=== PATIENT | male | born 1950 | race Caucasian/White ===

== ENCOUNTER → 2016-03-08 | Outpatient (CLI) | payer MEDICARE, OTHER ==
--- NOTE | 2016-03-09 07:33 | CT ---
EXAMINATION TYPE: CT pelvis w con DATE OF EXAM: 03/08/2016 6:56 PM REFERENCE: NONE HISTORY: Scrotal Wound Infection T81.4XXA HISTORY: Scrotal wound infection. Hydrocele surgery 01-25-16. REFERENCE: NONE CT DLP: 1202.30 mGy Automated exposure control for dose reduction was used. TECHNIQUE: Helical acquisition through the abdomen and pelvis was obtained following the oral ingesti on of with Oral Contrast and following intravenous administration of 100 mL of Omnipaque 300. The robert a was reformatted in axial, coronal and sagittal projections. FINDINGS: There is inflammatory change within the left inguinal canal extending into the soft tissue s of the left hemiscrotum. No definite drainable fluid collection is seen. There is calcification within the prostate gland. The bladder is not distended. There is no significant diverticular change. No free fluid and no free air is seen. There is mild prominence of the left renal pelvis and proximal ureter. There is a 1 to 2 mm calculus within the midportion of the left ureter. The right kidney is normal. There is mild degenerative disc disease, most marked at L2-3 but also present to lesser extent L5-S1. There is mild facet arthropathy in the lower lumbar spine. IMPRESSION: 1. EVIDENCE OF INFLAMMATORY CHANGE WITHIN THE LEFT INGUINAL CANAL EXTENDING INTO THE LEFT HEMISCROTUM WITHOUT A DRAINABLE FLUID COLLECTION. 2. DEGENERATIVE CHANGES WITHIN THE LUMBAR SPINE. 3. 1 TO 2 MM CALCULUS IN THE MID LEFT URETER CAUSING MILD HYDRONEPHROSIS ON THE LEFT.
== END | disposition home or self-care (01) ==
LOC: RADCTMAIN 18:24
PROVIDERS: ATTEND Surgery
DX: T81.4XXA Infection following a procedure, initial encounter (principal); N13.2 Hydronephrosis with renal and ureteral calculous obstruction
CPT/HCPCS: 72193; Q9967

== ENCOUNTER 2016-03-13 15:50 | Inpatient (IN) | payer MEDICARE, OTHER ==
[2016-03-13 17:22] LABS: Basophils # (A) 0.1 k/uL (0-0.2); Basophils % (A) 0 %; CH 28.1; CHCM 33.7; Eosinophils # (A) 0.1 k/uL (0-0.7); Eosinophils % (A) 1 %; HCT 35.4 % (39.0-53.0); HDW 3.18; Luc # (Auto) 0.29; Luc % (Auto) 2; Lymphocytes # (A) 2.1 k/uL (1.0-4.8); Lymphocytes % (A) 14 %; MCH 27.8 pg (25.0-35.0); MCHC 33.2 g/dL (31.0-37.0); MCV 83.8 fL (80.0-100.0); Mean Platelet Volume 6.8; Monocytes # (A) 0.8 k/uL (0-1.0); Monocytes % (A) 5 %; Neutrophils # (A) 11.4 k/uL (1.3-7.7); Neutrophils % (A) 78 %; RBC 4.23 m/uL (4.30-5.90); RDW 13.9 % (11.5-15.5); WBC 14.7 k/uL (3.8-10.6); WBC (Perox) 14.98
[2016-03-13] MEDS ORDERED: ACETAMINOPHEN TAB 500 MG TAB PO STA (17:29)
[2016-03-13 17:30] LABS: HGB 11.8 gm/dL (13.0-17.5)
[2016-03-13 17:31] LABS: Appearance,Urine Clear (Clear); Bilirubin,Urine Negative (Negative); Glucose,Urine (UA) Negative (Negative); Ketones,Urine Negative (Negative); Leukocyte Esterase,Urine Trace (Negative); Mucus,Urine Rare /hpf; Nitrite,Urine Negative (Negative); PH, Urine 5.5 (5.0-8.0); Particle Count 3040; Protein,Urine Negative (Negative); RBC,Urine 1 /hpf (0-5); Specific Gravity,Urine 1.009 (1.001-1.035); UA Billing (MACRO vs. MICRO) MICRO; WBC,Urine 1 /hpf (0-5)
[2016-03-13 17:36] LABS: ALT 35 U/L (21-72); AST 37 U/L (17-59); Alkaline Phosphatase 89 U/L (38-126); Anion Gap 12 mmol/L; Blood Urea Nitrogen 14 mg/dL (9-20); Calcium 8.6 mg/dL (8.4-10.2); Carbon Dioxide 24 mmol/L (22-30); Chloride 100 mmol/L (98-107); Glucose 128 mg/dL (74-99); Non-African American GFR(MDRD) >60 (>60 ml/min/1.73 sqM); Sodium 136 mmol/L (137-145); Total Bilirubin 0.8 mg/dL (0.2-1.3); Total Protein 6.6 g/dL (6.3-8.2)
[2016-03-13 17:37] LABS: Potassium 4.8 mmol/L (3.5-5.1)
[2016-03-13 17:46] LABS: INR 1.3 (<1.1); Prothrombin Time 12.4 sec (9.0-12.0)
[2016-03-13 17:47] LABS: Partial Thromboplastin Time 21.5 sec (22.0-30.0)
--- NOTE | 2016-03-13 18:28 | US ---
EXAMINATION TYPE: US scrotum with doppler. Grayscale and color Doppler Duplex imaging performed of thang de la fuente scrotum. DATE OF EXAM: 03/13/2016 6:05 PM COMPARISON: on PACS CLINICAL HISTORY: infection. Patients had left hydrocele surgery on 01/24. Drainage. Tenderness. EXAM MEASUREMENTS: TESTICLES: Right Testicle: 4.0 x 2.8 x 2.1 cm Left Testicle: 4.5 x 3.4 x 1.5 cm EPIDIDYMIS HEAD: Right Epididymis: 0.9 x 0.8 x 0.6 cm Left Epididymis: Not seen TECHNOLOGIST IMPRESSION: Left epididymis seen. Large echogenic lesion seen within the left sac= 2.6 cm Doppler performed to assess for testicular vascularity; good bilateral color flow and waveforms are s een. There is no evidence of testicular torsion. Presence of hydroceles: small left Presence of varicoceles: left side= 2.5 mm without valsalva IMPRESSION: There is no evidence of testicular torsion or mass. There is normal arterial waveform in the testicular arteries. There is a predominantly solid 2.6 x 1.6 cm area on the left side but could relate to scar tissue in this patient with left-sided surgery recently. No free fluid.
[2016-03-13] MEDS ORDERED: AMPICILLIN-SULBACTAM 3 GM in SODIUM CHLORIDE 0.9% 100 ML IVPB STA (19:19)
[2016-03-13] MEDS ORDERED: KETOROLAC 30 MG/ML 1 ML VIAL IVP STA (19:19)
[2016-03-13] MEDS ORDERED: IV VANCOMYCIN PER PHARMACY 1 EACH MISC MISCELLANE PRN (19:19)
[2016-03-13] MEDS ORDERED: VANCOMYCIN 2,000 MG in SODIUM CHLORIDE 0.9% 500 ML IVPB STA (19:25)
--- NOTE | 2016-03-13 19:32 | ED ---
General Adult HPI - General Chief complaint: Recheck/Abnormal Lab/Rx Stated complaint: Infection. Sent by Dr Dunbar Seen by Provider: 03/13/16 16:59 Source: patient Mode of arrival: ambulatory - History of Present Illness Initial comments: This 65-year-old white male presents with a complaint of some drainage from the left scrotum. He had hydrocele surgery done on 01/25/2016. He had a course of antibiotics a couple weeks later. He is unsure of the name of the antibiotics but apparently stopped it approximately 2 weeks ago. He relates that over the past several weeks he has had increased drainage. This is been sterling, bloody, and yellow at times. He states that some sutures were present in the drainage at one point. He presents today with a fever. The pain has been minimal. He saw doctor about this past week and had a computed tomography scan of the abdomen and pelvis which showed some inflammatory changes in the left inguinal canal and the left scrotum. He also had a left 1-2 mm ureteral calculus with associated hydronephrosis. He apparently was asymptomatic from this ureteral stone. He denies any other complaints or modifying factors. He denies any measured fevers at home. He denies any urinary symptoms. - Related Data Home Medications Medication Instructions Recorded Confirmed Biotin 5 mg PO DAILY 01/23/16 03/13/16 Lurasidone HCl [Latuda] 20 mg PO DAILY 01/23/16 03/13/16 Multivitamin/Iron/Folic Acid 1 tab PO DAILY 01/23/16 03/13/16 [Centrum Complete Multivit Tab] Naproxen 500 mg PO Q12HR PRN 01/23/16 03/13/16 Allergies Allergy/AdvReac Type Severity Reaction Status Date / Time wool Allergy Rash/Hives Verified 01/23/16 14:08 Review of Systems ROS Statement: Those systems with pertinent positive or pertinent negative responses have been documented in the HPI. ROS Other: All systems not noted in ROS Statement are negative. Past Medical History Past Medical History: Osteoarthritis (OA) History of Any Multi-Drug Resistant Organisms: None Reported Past Surgical History: Hernia Repair Additional Past Surgical History / Comment(s): hydrocele Past Psychological History: Bipolar, Depression, Schizophrenia Smoking Status: Current some day smoker Past Alcohol Use History: None Reported Past Drug Use History: None Reported General Exam - General Exam Comments Initial Comments: GENERAL: The patient is well nourished and well hydrated. VITAL SIGNS: Heart rate, blood pressure, respiratory rate reviewed as recorded in nurse's notes. EYES: Pupils are round and reactive. Extraocular movements are intact. No conjunctival / lid redness or swelling. ENT: No external evidence of injury, swelling, or ecchymosis. Airway is patent. Throat is clear. NECK: Nontender. No swelling or evidence of injury. No subcutaneous emphysema. Trachea is midline. No thyroid mass. HEART: Regular rate and rhythm. Good peripheral pulses. LUNGS/CHEST: Breath sounds clear and equal bilaterally. No rales, rhonchi, or wheezes. No ecchymosis, subcutaneous emphysema, or tenderness. ABDOMEN: Abdomen soft without tenderness. No palpable masses or organomegaly. No peritoneal signs. No abdominal wall swelling or ecchymosis. EXTREMITIES: No extremity tenderness. Normal muscle tone and function. No thoracolumbar tenderness. NEUROLOGIC: Sensation is grossly intact. Cranial nerve exam reveals face is symmetrical, tongue is midline, speech is clear. SKIN: No abrasions or ecchymosis is noted. No induration or masses noted. PSYCHIATRIC: Alert and oriented. Appropriate behavior and judgment. Genitourinary: There is some purulent drainage from the lateral aspect of the left scrotum. There is some mild swelling. There is no significant tenderness to the scrotum. There is associated mild erythema. Course Vital Signs 03/13/16 03/13/16 03/13/16 16:04 17:10 18:25 Temperature 101.8 F H 101.9 F H 101.8 F H Pulse Rate 97 91 86 Respiratory 20 16 16 Rate Blood Pressure 135/70 158/80 117/69 O2 Sat by Pulse 98 96 98 Oximetry Medical Decision Making - Medical Decision Making The patient was seen and examined. All diagnostics were reviewed. An IV was started and he was hydrated. He received some Tylenol as well as some Toradol for his fever. His white count came back elevated consistent with infection. He also had a scrotal ultrasound which does show a 2.61.6 solid area in the left scrotum possibly related to some scar tissue. The case is discussed with Dr. Hassan for Dr. Camp and he would like admission with urology to consult. Case is discussed with Dr. Vincent and he is agreeable to current treatment regimen. The patient is admitted to the general medical floor for further treatment. - Lab Data Result diagrams: 03/13/16 17:00 03/13/16 17:00 Lab Results 03/13/16 03/13/16 03/13/16 Range/Units 17:00 17:00 17:00 WBC 14.7 H (3.8-10.6) k/uL RBC 4.23 L (4.30-5.90) m/uL Hgb 11.8 L D (13.0-17.5) gm/dL Hct 35.4 L (39.0-53.0) % MCV 83.8 (80.0-100.0) fL MCH 27.8 (25.0-35.0) pg MCHC 33.2 (31.0-37.0) g/dL RDW 13.9 (11.5-15.5) % Plt Count 395 (150-450) k/uL Neutrophils % 78 % Lymphocytes % 14 % Monocytes % 5 % Eosinophils % 1 % Basophils % 0 % Neutrophils # 11.4 H (1.3-7.7) k/uL Lymphocytes # 2.1 (1.0-4.8) k/uL Monocytes # 0.8 (0-1.0) k/uL Eosinophils # 0.1 (0-0.7) k/uL Basophils # 0.1 (0-0.2) k/uL PT (9.0-12.0) sec INR (<1.1) APTT (22.0-30.0) sec Sodium 136 L (137-145) mmol/L Potassium 4.8 (3.5-5.1) mmol/L Chloride 100 (98-107) mmol/L Carbon Dioxide 24 (22-30) mmol/L Anion Gap 12 mmol/L BUN 14 (9-20) mg/dL Creatinine 1.12 (0.66-1.25) mg/dL Est GFR (MDRD) Af Amer >60 (>60 ml/min/1.73 sqM) Est GFR (MDRD) Non-Af >60 (>60 ml/min/1.73 sqM) Glucose 128 H (74-99) mg/dL Plasma Lactic Acid Raffi 1.2 (0.7-2.0) mmol/L Calcium 8.6 (8.4-10.2) mg/dL Total Bilirubin 0.8 (0.2-1.3) mg/dL AST 37 (17-59) U/L ALT 35 (21-72) U/L Alkaline Phosphatase 89 (38-126) U/L Total Protein 6.6 (6.3-8.2) g/dL Albumin 3.2 L (3.5-5.0) g/dL Urine Color Urine Appearance (Clear) Urine pH (5.0-8.0) Ur Specific [place] (1.001-1.035) Urine Protein (Negative) Urine Glucose (UA) (Negative) Urine Ketones (Negative) Urine Blood (Negative) Urine Nitrate (Negative) Urine Bilirubin (Negative) Urine Urobilinogen (<2.0) mg/dL Ur Leukocyte Esterase (Negative) Urine RBC (0-5) /hpf Urine WBC (0-5) /hpf Urine Mucus (None) /hpf 03/13/16 03/13/16 Range/Units 17:00 17:00 WBC (3.8-10.6) k/uL RBC (4.30-5.90) m/uL Hgb (13.0-17.5) gm/dL Hct (39.0-53.0) % MCV (80.0-100.0) fL MCH (25.0-35.0) pg MCHC (31.0-37.0) g/dL RDW (11.5-15.5) % Plt Count (150-450) k/uL Neutrophils % % Lymphocytes % % Monocytes % % Eosinophils % % Basophils % % Neutrophils # (1.3-7.7) k/uL Lymphocytes # (1.0-4.8) k/uL Monocytes # (0-1.0) k/uL Eosinophils # (0-0.7) k/uL Basophils # (0-0.2) k/uL PT 12.4 H (9.0-12.0) sec INR 1.3 (<1.1) APTT 21.5 L (22.0-30.0) sec Sodium (137-145) mmol/L Potassium (3.5-5.1) mmol/L Chloride (98-107) mmol/L Carbon Dioxide (22-30) mmol/L Anion Gap mmol/L BUN (9-20) mg/dL Creatinine (0.66-1.25) mg/dL Est GFR (MDRD) Af Amer (>60 ml/min/1.73 sqM) Est GFR (MDRD) Non-Af (>60 ml/min/1.73 sqM) Glucose (74-99) mg/dL Plasma Lactic Acid Raffi (0.7-2.0) mmol/L Calcium (8.4-10.2) mg/dL Total Bilirubin (0.2-1.3) mg/dL AST (17-59) U/L ALT (21-72) U/L Alkaline Phosphatase (38-126) U/L Total Protein (6.3-8.2) g/dL Albumin (3.5-5.0) g/dL Urine Color Yellow Urine Appearance Clear (Clear) Urine pH 5.5 (5.0-8.0) Ur Specific [place] 1.009 (1.001-1.035) Urine Protein Negative (Negative) Urine Glucose (UA) Negative (Negative) Urine Ketones Negative (Negative) Urine Blood Negative (Negative) Urine Nitrate Negative (Negative) Urine Bilirubin Negative (Negative) Urine Urobilinogen 2.0 (<2.0) mg/dL Ur Leukocyte Esterase Trace H (Negative) Urine RBC 1 (0-5) /hpf Urine WBC 1 (0-5) /hpf Urine Mucus Rare H (None) /hpf Disposition Clinical Impression: Scrotal infection, Fever, Leukocytosis, Anemia, Hypertension, Status post repair of hydrocele Disposition: ADMITTED IP TO THIS [facility] Condition: Fair Time of Disposition: 19:32 Decision Date: 03/13/16 Decision Time: 19:32
[2016-03-13] MEDS ORDERED: ACETAMINOPHEN TAB 325 MG TAB PO PRN (19:33)
[2016-03-13] MEDS ORDERED: ONDANSETRON 4 MG/2 ML VIAL IVP PRN (19:33)
[2016-03-13] MEDS ORDERED: NALOXONE 0.4 MG/ML 1 ML VIAL IV PRN (19:33)
[2016-03-13] MEDS ORDERED: NAPROXEN 250 MG TAB PO PRN (19:36)
--- NOTE | 2016-03-14 07:44 | P.GSCN ---
History of Present Illness Consult date: 03/14/16 History of present illness: The patient is a 65-year-old gentleman who several weeks ago underwent scrotal exploration for a hydrocele by . The hydrocele was small but there was a large inguinal mass. Dr. Cardenas was asked to evaluate and he had either a lipoma the cord or some omentum. It was resected. Postoperatively he started having drainage. He has been seen in the office multiple times. Cultures have been skin fluoroscopy. He has been on different antibiotics. He apparently had a CAT scan identifying a mass in the groin consistent with a phlegmon. He was told by Dr. Cardenas's office, the emergency room. In the emergency room he had drainage from the scrotum as well as a fever 101 8. He was admitted under Dr. Cardenas service. We are asked to see the patient. He is afebrile this morning. There is drainage coming from the scrotum at is purulent. Review of Systems - Constitutional Reports fever - Genitourinary Reports as per HPI Past Medical History Past Medical History: Cancer, Osteoarthritis (OA) Additional Past Medical History / Comment(s): past concussions eczema as child, edentulous,basal cell skin cancer lt face , kidney stones,currently wearing a brief d/r drainage (recent scrotal sx) History of Any Multi-Drug Resistant Organisms: None Reported Past Surgical History: Adenoidectomy, Hernia Repair, Tonsillectomy Additional Past Surgical History / Comment(s): hydrocele 16 scrotal exploration/excision of lipoma lt spermatic cord. several basal cell skin cancer removal, sigmoidoscopy/polypectomy,umb hernia repair,deviated septum. Past Anesthesia/Blood Transfusion Reactions: No Reported Reaction Past Psychological History: Bipolar, Depression, Schizophrenia Smoking Status: Current some day smoker Past Alcohol Use History: Rare Additional Past Alcohol Use History / Comment(s): stated started smoking in his late 30's or early 40's.is a some day smoker. a pack will last a week. smoking cessation booklet given to pt. Past Drug Use History: None Reported - Past Family History Father Additional Family Medical History / Comment(s): health was good until her fell broke a hip,ended up with pne and from complications from pne. Mother Additional Family Medical History / Comment(s): heart problems and pacemaker Medications and Allergies Home Medications Medication Instructions Recorded Confirmed Type Biotin 5 mg PO DAILY 01/23/16 03/13/16 History Lurasidone HCl [Latuda] 20 mg PO DAILY 01/23/16 03/13/16 History Multivitamin/Iron/Folic Acid 1 tab PO DAILY 01/23/16 03/13/16 History [Centrum Complete Multivit Tab] Naproxen 500 mg PO Q12HR PRN 01/23/16 03/13/16 History Allergies Allergy/AdvReac Type Severity Reaction Status Date / Time wool Allergy Rash/Hives Verified 01/23/16 14:08 Surgical - Exam Vital Signs Temp Pulse Resp BP Pulse Ox 101.8 F H 97 20 135/70 98 03/13/16 16:04 03/13/16 16:04 03/13/16 16:04 03/13/16 16:04 03/13/16 16:04 - General well developed, well nourished, no distress - Eyes PERRL - ENT no hearing loss - Neck no masses - Respiratory normal expansion, normal respiratory effort - Cardiovascular Rhythm: regular - Abdomen Abdomen: soft, non tender - Genitourinary The penis is normal. In the left anterior scrotal approach in the groin there is a small opening draining thick purulent non-smelling fluid. There is induration in the left groin. When it is compressed more fluid drained out of the opening. There is no palpable fluctuance. There is no crepitus. The skin is not erythematous. - Neurologic normal sensation - Musculoskeletal normal posture - Psychiatric oriented to time, oriented to person, oriented to place Results - Labs 03/13/16 17:00 03/13/16 17:00 Assessment and Plan Plan: Impression: Left groin/scrotal infection, abscess surgical. Recommendations: I will notify of this admission. He and Dr. Camp we'll then decide whether further surgical intervention will be required.
[2016-03-14 08:02] LABS: Basophils # (A) 0.1 k/uL (0-0.2); Basophils % (A) 1 %; CHCM 33.1; Eosinophils # (A) 0.1 k/uL (0-0.7); Eosinophils % (A) 1 %; HCT 32.9 % (39.0-53.0); HGB 10.9 gm/dL (13.0-17.5); Luc # (Auto) 0.19; Luc % (Auto) 2; Lymphocytes # (A) 1.6 k/uL (1.0-4.8); Lymphocytes % (A) 17 %; MCV 84.8 fL (80.0-100.0); Mean Platelet Volume 6.9; Monocytes # (A) 0.6 k/uL (0-1.0); Monocytes % (A) 6 %; Neutrophils # (A) 6.9 k/uL (1.3-7.7); Neutrophils % (A) 73 %; RBC 3.88 m/uL (4.30-5.90); RDW 14.2 % (11.5-15.5); WBC 9.4 k/uL (3.8-10.6); WBC (Perox) 9.74
[2016-03-14] MEDS: ENOXAPARIN 40 MG/0.4 ML SYRINGE SQ SCH (08:07)
[2016-03-14] MEDS: AMPICILLIN-SULBACTAM 3 GM in SODIUM CHLORIDE 0.9% 100 ML IVPB SCH ×3 (08:08→17:33)
[2016-03-14] MEDS: PANTOPRAZOLE 40 MG/10 ML VIAL IV SCH (08:11)
[2016-03-14] MEDS ORDERED: NON-FORMULARY DRUG (Biotin [Biotin] 5 MG) PO SCH (09:00)
[2016-03-14] MEDS: VANCOMYCIN 2,000 MG in SODIUM CHLORIDE 0.9% 500 ML IVPB SCH ×2 (09:56→20:44)
[2016-03-14] MEDS ORDERED: HYDROmorphone 1 MG/ML 1 ML SYRINGE IVP STA (10:49)
--- NOTE | 2016-03-14 11:44 | P.GSHP ---
History of Present Illness H&P Date: 03/14/16 Chief Complaint: Psoas abscess Patient underwent operative excision of a left scrotal cyst. During the operation I was asked to evaluate what appeared to represent either a lipoma or possibly a low-lying hernia within the inguinal canal. This area was ligated during that operative procedure. Postoperatively he has developed a purulent drainage from the scrotal incision site. This has persisted with fairly impressive volume. An outpatient CAT scan was ordered after I saw the patient in the office last week. CAT scan shows a psoas abscess small air bubbles as well. There is no bowel contributing to that at this time the can be seen. He has had fevers as an outpatient. His white blood cell count last night when he came to the ER was elevated. He underwent a percutaneous drain of a purulent fluid collection today. Consultation to urology and infectious disease has started. He is on broad-spectrum antibiotics. Cultures were performed as an outpatient which showed normal skin asif. He was treated as an outpatient with oral antibiotics by urology. - Review of Systems Comment: The patient denies any acute changes in his vision or hearing, no dysphagia or odynophagia, no chest pain or shortness of breath, no dysuria or hematuria, no headache, no runny nose, no rectal bleeding or melena, no unexplained weight loss Past Medical History Past Medical History: Cancer, Osteoarthritis (OA) Additional Past Medical History / Comment(s): past concussions eczema as child, edentulous,basal cell skin cancer lt face , kidney stones,currently wearing a brief d/r drainage (recent scrotal sx) History of Any Multi-Drug Resistant Organisms: None Reported Past Surgical History: Adenoidectomy, Hernia Repair, Tonsillectomy Additional Past Surgical History / Comment(s): hydrocele 01-25-16 scrotal exploration/excision of lipoma lt spermatic cord. several basal cell skin cancer removal, sigmoidoscopy/polypectomy,umb hernia repair,deviated septum. Past Anesthesia/Blood Transfusion Reactions: No Reported Reaction Past Psychological History: Bipolar, Depression, Schizophrenia Smoking Status: Current some day smoker Past Alcohol Use History: Rare Additional Past Alcohol Use History / Comment(s): stated started smoking in his late 30's or early 40's.is a some day smoker. a pack will last a week. smoking cessation booklet given to pt. Past Drug Use History: None Reported - Past Family History Father Additional Family Medical History / Comment(s): health was good until her fell broke a hip,ended up with pne and from complications from pne. Mother Additional Family Medical History / Comment(s): heart problems and pacemaker Medications and Allergies Home Medications Medication Instructions Recorded Confirmed Type Biotin 5 mg PO DAILY 01/23/16 03/13/16 History Lurasidone HCl [Latuda] 20 mg PO DAILY 01/23/16 03/13/16 History Multivitamin/Iron/Folic Acid 1 tab PO DAILY 01/23/16 03/13/16 History [Centrum Complete Multivit Tab] Naproxen 500 mg PO Q12HR PRN 01/23/16 03/13/16 History Allergies Allergy/AdvReac Type Severity Reaction Status Date / Time wool Allergy Rash/Hives Verified 01/23/16 14:08 Surgical - Exam Vital Signs Temp Pulse Resp BP Pulse Ox 101.8 F H 97 20 135/70 98 03/13/16 16:04 03/13/16 16:04 03/13/16 16:04 03/13/16 16:04 03/13/16 16:04 Physical exam: General: [Well-developed, well-nourished] HEENT: Normocephalic, sclerae nonicteric Abdomen: Purulent drainage from a small opening in the mid aspect of the left hemiscrotum induration surrounds this and extends up into the inguinal canal where there is mild tenderness, no fluctuance, slight erythema noted no odor Extremities: No edema Neuro: Alert and oriented Results - Labs 03/14/16 07:26 03/13/16 17:00 Abnormal Lab Results - Last 24 Hours (Table) 03/14/16 Range/Units 07:26 RBC 3.88 L (4.30-5.90) m/uL Hgb 10.9 L (13.0-17.5) gm/dL Hct 32.9 L (39.0-53.0) % Assessment and Plan (1) Psoas abscess Narrative/Plan: I suspect an ascending infection related to the recent surgical procedure. Percutaneous drain placement took place earlier today. Hopefully between this, appropriate IV antibiotics, and local wound care to the scrotum we can avoid any surgical intervention. Await infectious disease evaluation. We'll consult Dr. Mace for evaluation. Status: Acute
[2016-03-14] MEDS: LURASIDONE 40 MG TAB PO SCH (11:47)
[2016-03-14] MEDS: MULTIVITAMINS, THERA 1 EACH TAB PO SCH (11:48)
--- NOTE | 2016-03-14 12:53 | CT ---
EXAMINATION TYPE: CT guided abscess drainage DATE OF EXAM: 03/14/2016 11:38 AM COMPARISON: NONE HISTORY: Insertion of drainage tube CT DLP: 1374 mGycm The procedure is discussed with the patient, the risks, complications, benefits and alternatives, wer e discussed and any questions were answered. Informed consent was obtained. The patient is placed s upine on the CT table, prepped and draped in the usual sterile fashion. Utilizing a 22-gauge Chiba needle access into the psoas fluid collection was achieved.. Purulent mate rial was aspirated from the needle. There is placement of a guidewire and conversion to a 0.035 syste m and serial dilation 8 German with placement 8 German drainage catheter. Repeat imaging demonstrated ideal placement of a catheter. All elements of maximal barrier and sterile technique were utilized. The patient remained stable thr oughout the procedure with no immediate postprocedural complication. Sample sent to pathology for kailyn lysis. IMPRESSION: 1. Successful CT guided psoas muscle abscess drainage catheter insertion.
--- NOTE | 2016-03-14 19:37 | CONS ---
DATE OF CONSULTATION: REASON FOR CONSULTATION: Management of antibiotics. HISTORY OF PRESENT ILLNESS: The patient is a 65 -year-old came in today with pain and pus coming out of the left groin area and the patient was found to have abscess for which the patient underwent ( ) incision and drainage. The patient ( ) surgery for hydrocele. Post surgery patient appears to have ( ) surgical site area for which the patient received oral antibiotics without any significant improvement in the groin phlegmon at that time and the patient ended up having fever 101 in the Emergency Room Department. The patient is admitted for sepsis secondary to abscess in the pelvic area for which patient underwent CT-guided drainage. Patient is feeling better at this point of time. He is complaining of minimal pain at home and here. The patient is on Unasyn and vancomycin which is ( ) cultures are pending including gram stain, pending gram stain. REVIEW OF SYSTEMS: CONSTITUTIONAL: No fever, no malaise, no fatigue. HEENT: No recent visual problems or hearing problems. Denied any sore throat. CARDIOVASCULAR: No chest pain, orthopnea, PND, no palpitations, no syncope. PULMONARY: No shortness of breath, no cough, no hemoptysis. GASTROINTESTINAL: No diarrhea, no nausea, no vomiting, no abdominal pain. Normoactive bowel sounds. NEUROLOGICAL: No headaches, no weakness, no numbness. HEMATOLOGICAL: Denies any bleeding or petechiae. GENITOURINARY: Denies any burning micturition, frequency, or urgency. MUSCULOSKELETAL/RHEUMATOLOGICAL: Denies any joint pain, swelling, or any muscle pain. ENDOCRINE: Denies any polyuria or polydipsia. DERMATOLOGICAL: As described in history of present illness. The rest of the 14 point review of systems is negative. PAST MEDICAL HISTORY: Osteoarthritis, recent hydrocele and surgery for hydrocele, ( ). PAST SURGICAL HISTORY: tonsillectomy and adenoidectomy, hernia repair, the patient had ( ) exploration and excision of lipoma. Patient had basal cell carcinoma. Past medical history also of depression, schizophrenia. SOCIAL HISTORY: The patient did smoke until last week, used to smoke a pack per day. Denied any alcohol abuse or any drug abuse. FAMILY HISTORY: Father without any medical problems. Mother had heart problems and ( ) pacemaker. Home medications prior to admission: 1. Levacetone. 2. Multivitamin in the past. ALLERGIES: ( ). PHYSICAL EXAMINATION: VITAL SIGNS: Temperature 97.0, pulse of ( ), blood pressure is ( ). Saturating at 98% on room air. GENERAL: The patient is alert and oriented x3, not in any acute distress. Well developed, well nourished. HEENT: Pupils are round and equally reacting to light. EOMI. No scleral icterus. No conjunctival pallor. Normocephalic, atraumatic. No pharyngeal erythema. No thyromegaly. CARDIOVASCULAR: S1 and S2 present. No murmurs, rubs, or gallops. PULMONARY: Chest is clear to auscultation, no wheezing or crackles. ABDOMEN: Soft, nontender, nondistended, normoactive bowel sounds. No palpable organomegaly. MUSCULOSKELETAL: No joint swelling or deformity. EXTREMITIES: No cyanosis, clubbing, or pedal edema. NEUROLOGICAL: Gross neurological examination did not reveal any focal deficits. SKIN: No rashes. Right groin area patient has a drain coming out of it with pus drainage into the drainage site. LABORATORY DATA: CBC, BMP are abnormal for elevated WBC count of 14,100. ASSESSMENT AND PLAN: 1. ( ) abscess for which patient underwent severe drainage and the patient is on Unasyn and Vancomycin which is appropriate. We will await wound cultures and patient had a contiguous spread from the recent surgical site area. Patient denied any IV drug use. At this time, I will hold off on the evaluation of HIV and hepatitis B which is reasonable if done. Patient denied any history of hepatitis and IV drug use in the past. 2. Schizophrenia. 3. Sepsis secondary to ( ) abscess. The patient is on IV fluids as mentioned above and antibiotics as mentioned above status post drainage. Thank you for letting me participate in this patient's care. Patient's primary care physician is Dr. Rita Camp.
[2016-03-14] MEDS: HYDROcodone/APAP 5-325MG 1 EACH TAB PO PRN (20:53)
--- NOTE | 2016-03-14 21:38 | P.CONS ---
History of Present Illness - Reason for Consult Consult date: 03/14/16 - Chief Complaint Drainage from scrotum - History of Present Illness 65-year-old male who has a history of bipolar disorder and schizophrenia presents to Hospital after his repair of the left scrotal cyst. There was a concern that he either had a lipoma or low-lying hernia within his inguinal canal at the time of the surgery. He was ligated in the time of surgery and he did well however after the surgery Center developed some purulent drainage out of his scrotum at the incision site. The volume of the purulent drainage continued to increase. And he was sent for an outpatient computed tomography scan. There is related there was evidence now of an abscess that tract to the psoas muscle with no evidence of any bowel involvement. Because of his fever and lack of improvement with oral antibiotic therapy and leukocytosis he was brought in to Hospital for intervention. He has been seen by surgery and urology and interventional radiology has placed the percutaneous drain into a psoas abscess to drain the area. He is living some purulent drainage on the scrotum but does feel better. He this time is denying high-grade fevers, chills or rigors. But does not feel well. His pain is improved since coming to hospital. Review of Systems HEENT:Denies headache or acute visual change. Denies sinus or mouth discomforts. Denies neck stiffness or pain. Denies significant oral cavity pain. Denies difficulty on swallowing. Lungs: Denies significant shortness of breath, cough, sputum production, or hemoptysis. Cardiovascular: Denies significant shortness of breath, chest pain, chest wall pain, orthopnea, dyspnea on exertion, syncope Gastrointestinal:Denies nausea, vomiting, diarrhea, constipation, hematemesis, melena, hematochezia. No no significant change of bowel habit noticed. Musculoskeletal: denies significant myalgias or arthralgias. No new joint swelling. Denies new back pain. Skin: Significant drainage from the wound to his left scrotum as well as pain that radiates into the lower abdominal area. Neuro: Denies headache or visual change. Denies any new onset weakness or difficulty with ambulation. Denies falls or seizures. Psychiatric: History of bipolar disorder and schizophrenia currently stable Endocrine: Denies significant fatigue, denies significant weight loss or weight gain. Past Medical History Past Medical History: Cancer, Osteoarthritis (OA) Additional Past Medical History / Comment(s): past concussions eczema as child, edentulous,basal cell skin cancer lt face , kidney stones,currently wearing a brief d/r drainage (recent scrotal sx) History of Any Multi-Drug Resistant Organisms: None Reported Past Surgical History: Adenoidectomy, Hernia Repair, Tonsillectomy Additional Past Surgical History / Comment(s): hydrocele 01-24-16 scrotal exploration/excision of lipoma lt spermatic cord. several basal cell skin cancer removal, sigmoidoscopy/polypectomy,umb hernia repair,deviated septum. Past Anesthesia/Blood Transfusion Reactions: No Reported Reaction Past Psychological History: Bipolar, Depression, Schizophrenia Additional Psychological History / Comment(s): Single. Lives in an apartment with a roommate in the room about him. Not a tobacco smoker or alcohol user. 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 No experience. No international travel. No animal exposures Smoking Status: Current some day smoker Past Alcohol Use History: Rare Additional Past Alcohol Use History / Comment(s): stated started smoking in his late 30's or early 40's.is a some day smoker. a pack will last a week. smoking cessation booklet given to pt. Past Drug Use History: None Reported - Past Family History Father Additional Family Medical History / Comment(s): health was good until her fell broke a hip,ended up with pne and from complications from pne. Mother Additional Family Medical History / Comment(s): heart problems and pacemaker Medications and Allergies Home Medications and Allergies Comment(s): Current Medications Acetaminophen (Tylenol Tab) 650 mg PO Q6HR PRN PRN Reason: Mild Pain or Fever > 100.5 Acetaminophen/Hydrocodone Bitart (Vida 5-325) 1 each PO Q4HR PRN PRN Reason: Moderate Pain Last Admin: 03/14/16 20:53 Dose: 1 each Diphenhydramine HCl (Benadryl) 50 mg PO HS MEL Enoxaparin Sodium (Lovenox) 40 mg SQ DAILY [facility] Last Admin: 03/14/16 08:07 Dose: Not Given Vancomycin HCl 2,000 mg/ (Sodium Chloride) 500 mls @ 167 mls/hr IVPB Q12HR [facility] Last Admin: 03/14/16 20:44 Dose: 167 mls/hr Ampicillin Sodium/Sulbactam (Sodium 3 gm/ Sodium Chloride) 100 mls @ 100 mls/ hr IVPB QID [facility] Last Admin: 03/14/16 17:33 Dose: 100 mls/hr Lurasidone HCl (Latuda) 20 mg PO DAILY [facility] Last Admin: 03/14/16 11:47 Dose: 20 mg Multivitamins (Theragran) 1 each PO DAILY@1200 [facility] Last Admin: 03/14/16 11:48 Dose: 1 each Naloxone HCl (Narcan) 0.2 mg IV Q2M PRN PRN Reason: Opioid Reversal Naproxen (Naprosyn) 500 mg PO Q12HR PRN PRN Reason: Pain or Fever > 100.5 Ondansetron HCl (Zofran) 4 mg IVP Q8HR PRN PRN Reason: Nausea And Vomiting Pantoprazole Sodium (Protonix) 40 mg IV DAILY [facility] Last Admin: 03/14/16 08:11 Dose: 40 mg Sodium Chloride (Saline Flush) 10 ml IV BID [facility] Last Admin: 03/14/16 20:43 Dose: 10 ml Home Medications Medication Instructions Recorded Confirmed Type Biotin 5 mg PO DAILY 01/23/16 03/13/16 History Lurasidone HCl [Latuda] 20 mg PO DAILY 01/23/16 03/13/16 History Multivitamin/Iron/Folic Acid 1 tab PO DAILY 01/23/16 03/13/16 History [Centrum Complete Multivit Tab] Naproxen 500 mg PO Q12HR PRN 01/23/16 03/13/16 History Allergies Allergy/AdvReac Type Severity Reaction Status Date / Time wool Allergy Rash/Hives Verified 01/23/16 14:08 Physical Exam Vitals: Vital Signs Temp Pulse Pulse Resp BP Pulse Ox 03/14/16 15:37 16 03/14/16 12:30 98.4 F 86 16 134/67 97 03/14/16 12:00 98 16 133/72 98 03/14/16 11:21 72 16 127/64 96 03/14/16 11:01 74 16 132/76 94 L 03/14/16 10:45 78 16 109/54 95 03/14/16 08:00 16 03/14/16 07:00 98.3 F 68 16 121/63 98 03/14/16 00:00 16 03/13/16 22:59 97.5 F L 03/13/16 21:35 99.4 F 73 16 124/58 98 Intake and Output 03/14/16 03/14/16 03/14/16 06:59 14:59 22:59 Intake Total 1100 Output Total 250 20 Balance 850 -20 Intake: IV 100 Ampicillin-Sulbactam 3 gm 100 In Sodium Chloride 0.9% 100 ml @ 100 mls/hr IVPB ONCE STA Rx#:[id number] Intake, IV Titration 500 Amount Vancomycin 2,000 mg In 500 Sodium Chloride 0.9% 500 ml @ 167 mls/hr IVPB Q12HR [facility] Rx#:[id number] Oral 500 Output: Drainage 20 Left Lower Back 20 Urine 250 Other: Voiding Method Urinal Urinal Urinal # Voids 1 2 65-year-old male who is quite comfortable at this time but does still complain of some pain at the left scrotum HEENT: Anicteric conjunctiva are pink and moist nasal mucosa grossly intact without significant lesions, there is no thrush. Neck: The neck is supple without significant lymphadenopathy or thyromegaly. Lungs: Good bilateral air entry without significant crackles or wheezing. There is no significant bronchial sounds. There is no egophony or dullness. Heart: Regular rate and rhythm with an audible S1-S2, no S3 no S4. There is no significant murmur click or rub, PMI was nondisplaced. Abdomen: Positive bowel sounds soft and nontender without palpable masses or organomegaly. There was no guarding or rebound. Extremities: The upper extremities have excellent pulses they are symmetric, no significant petechiae or telangiectasia. No splinter hemorrhages were noted. The lower extremities are free from significant edema. The peripheral pulses were 2+ and symmetric. Neuro: Awake alert oriented to person place and time. There are no acute new gross focal sensory motor deficits. Skin: The left scrotum has evidence of the recent surgical intervention. There is still some swelling and induration to the scrotum. There is an opening with grossly purulent material that is easily expressed through the site. There is some induration that travels the epididymis to the abdominal wall. It is not extremely tender. The testicle itself is not tender. Right testicle is nontender. Penis without lesions. Results CBC & Chem 7: 03/14/16 07:26 03/13/16 17:00 Labs: Abnormal Lab Results - Last 24 Hours (Table) 03/14/16 Range/Units 07:26 RBC 3.88 L (4.30-5.90) m/uL Hgb 10.9 L (13.0-17.5) gm/dL Hct 32.9 L (39.0-53.0) % Microbiology - Last 24 Hours (Table) 03/14/16 11:15 Body Fluid Culture - Preliminary Aspirate 03/14/16 11:15 Anaerobic Culture - Preliminary Aspirate Laboratory Results WBC 9.4 k/uL (3.8-10.6) 03/14/16 07:26 RBC 3.88 m/uL (4.30-5.90) L 03/14/16 07:26 Hgb 10.9 gm/dL (13.0-17.5) L 03/14/16 07:26 Hct 32.9 % (39.0-53.0) L 03/14/16 07:26 MCV 84.8 fL (80.0-100.0) 03/14/16 07:26 MCH 28.0 pg (25.0-35.0) 03/14/16 07: MCHC 33.0 g/dL (31.0-37.0) 03/14/16 07: RDW 14.2 % (11.5-15.5) 03/14/16 07:26 Plt Count 360 k/uL (150-450) 03/14/16 07: Neutrophils % 73 % 03/14/16 07:26 Lymphocytes % 17 % 03/14/16 07:26 Monocytes % 6 % 03/14/16 07:26 Eosinophils % 1 % 03/14/16 07:26 Basophils % 1 % 03/14/16 07:26 Neutrophils # 6.9 k/uL (1.3-7.7) 03/14/16 07: Lymphocytes # 1.6 k/uL (1.0-4.8) 03/14/16 07: Monocytes # 0.6 k/uL (0-1.0) 03/14/16 07:26 Eosinophils # 0.1 k/uL (0-0.7) 03/14/16 07:26 Basophils # 0.1 k/uL (0-0.2) 03/14/16 07:26 PT 12.4 sec (9.0-12.0) H 03/13/16 17:00 INR 1.3 (<1.1) 03/13/16 17:00 APTT 21.5 sec (22.0-30.0) L 03/13/16 17:00 Sodium 136 mmol/L (137-145) L 03/13/16 17:00 Potassium 4.8 mmol/L (3.5-5.1) 03/13/16 17:00 Chloride 100 mmol/L (98-107) 03/13/16 17:00 Carbon Dioxide 24 mmol/L (22-30) 03/13/16 17:00 Anion Gap 12 mmol/L 03/13/16 17:00 BUN 14 mg/dL (9-20) 03/13/16 17:00 Creatinine 1.12 mg/dL (0.66-1.25) 03/13/16 17:00 Est GFR (MDRD) Af Amer >60 (>60 ml/min/1.73 sqM) 03/13/16 17:00 Est GFR (MDRD) Non-Af >60 (>60 ml/min/1.73 sqM) 03/13/16 17:00 Glucose 128 mg/dL (74-99) H 03/13/16 17:00 Plasma Lactic Acid Raffi 1.2 mmol/L (0.7-2.0) 03/13/16 17:00 Calcium 8.6 mg/dL (8.4-10.2) 03/13/16 17:00 Total Bilirubin 0.8 mg/dL (0.2-1.3) 03/13/16 17:00 AST 37 U/L (17-59) 03/13/16 17:00 ALT 35 U/L (21-72) 03/13/16 17:00 Alkaline Phosphatase 89 U/L (38-126) 03/13/16 17:00 Total Protein 6.6 g/dL (6.3-8.2) 03/13/16 17:00 Albumin 3.2 g/dL (3.5-5.0) L 03/13/16 17:00 Urine Color Yellow 03/13/16 17:00 Urine Appearance Clear (Clear) 03/13/16 17:00 Urine pH 5.5 (5.0-8.0) 03/13/16 17:00 Ur Specific [place] 1.009 (1.001-1.035) 03/13/16 17:00 Urine Protein Negative (Negative) 03/13/16 17:00 Urine Glucose (UA) Negative (Negative) 03/13/16 17:00 Urine Ketones Negative (Negative) 03/13/16 17:00 Urine Blood Negative (Negative) 03/13/16 17:00 Urine Nitrate Negative (Negative) 03/13/16 17:00 Urine Bilirubin Negative (Negative) 03/13/16 17:00 Urine Urobilinogen 2.0 mg/dL (<2.0) 03/13/16 17:00 Ur Leukocyte Esterase Trace (Negative) H 03/13/16 17:00 Urine RBC 1 /hpf (0-5) 03/13/16 17:00 Urine WBC 1 /hpf (0-5) 03/13/16 17:00 Urine Mucus Rare /hpf (None) H 03/13/16 17:00 Microbiology 03/13/16 17:00 Blood Blood Culture - Preliminary No Growth after 24 hours 03/13/16 17:00 Urine,Voided Urine Culture - Final 03/14/16 11:15 Aspirate Body Fluid Culture - Preliminary 03/14/16 11:15 Aspirate Anaerobic Culture - Preliminary 03/13/16 17:00 Scrotum Anaerobic Culture - Preliminary 03/13/16 17:00 Scrotum Wound Culture - Preliminary Assessment and Plan (1) Psoas abscess Status: Acute (2) Scrotal infection Status: Acute (3) Leukocytosis Status: Acute (4) Fever Status: Acute
[2016-03-14] MEDS: diphenhydrAMINE 25 MG CAP PO SCH (22:33)
[2016-03-14 22:35] LABS: Hemoglobin A1C 8.2 % (4.2-6.1)
[2016-03-15] MEDS: AMPICILLIN-SULBACTAM 3 GM in SODIUM CHLORIDE 0.9% 100 ML IVPB SCH ×5 (00:16→18:31)
--- NOTE | 2016-03-15 07:50 | P.PN ---
Progress Note - Text The patient is afebrile. He says that his pain is minimal. He has drained a moderate amount of thick material from the retroperitoneal abscess but has minimal if any drainage from the scrotal incision at this time. Wound cultures are pending. Blood count today is 9,400. Impression: Retroperitoneal abscess with adequate drainage through percutaneous catheter. Plan: I am in agreement with the current antibiotic choice pending results of the wound culture.
[2016-03-15] MEDS: MULTIVITAMINS, THERA 1 EACH TAB PO SCH (07:57)
[2016-03-15] MEDS: LURASIDONE 40 MG TAB PO SCH (07:57)
[2016-03-15] MEDS: PANTOPRAZOLE 40 MG/10 ML VIAL IV SCH (07:57)
[2016-03-15] MEDS: ENOXAPARIN 40 MG/0.4 ML SYRINGE SQ SCH (07:57)
[2016-03-15] MEDS: VANCOMYCIN 2,000 MG in SODIUM CHLORIDE 0.9% 500 ML IVPB SCH ×2 (11:05→20:47)
--- NOTE | 2016-03-15 14:12 | PN ---
Patient is admitted left psoas abscess and patient stopped draining from the abscess area. Patient underwent a CT-guided drainage and a drain placement. Patient is otherwise clinically doing well. Patient is on Unasyn and vancomycin. Patient's wound cultures are positive for gram-negative bacilli, gram-positive cocci. Of course gram-positive bacilli, which is diphtheroids which is a contaminant and patient is on Unasyn and vancomycin. Patient is afebrile at this time. REVIEW OF SYSTEMS: CARDIOVASCULAR: No chest pain, no orthopnea, no PND, no palpitations. PULMONARY: Denied any shortness of breath. No cough or hemoptysis. GASTROINTESTINAL: No diarrhea, nausea or vomiting. No abdominal pain. Normoactive bowel sounds. NEUROLOGIC: No headaches, no weakness, no numbness. MUSCULOSKELETAL: Improved pain. Medications were reviewed. PHYSICAL EXAMINATION: Temperature 99.3, pulse of 79, respiratory rate of 18, blood pressure is 143/68, saturating at 97% on room air. GENERAL: The patient is alert and oriented x3, not in any acute distress. Well developed, well nourished. HEENT: Pupils are round and equally reacting to light. EOMI. No scleral icterus. No conjunctival pallor. Normocephalic, atraumatic. No pharyngeal erythema. No thyromegaly. CARDIOVASCULAR: S1 and S2 present. No murmurs, rubs, or gallops. PULMONARY: Chest is clear to auscultation, no wheezing or crackles. ABDOMEN: Soft, nontender, nondistended, normoactive bowel sounds. No palpable organomegaly. EXTREMITIES: No cyanosis, clubbing, or pedal edema. NEUROLOGICAL: Gross neurological examination did not reveal any focal deficits. SKIN: No rashes. MUSCULOSKELETAL: No significant change compared to yesterday except for drainage improved. There is no drainage from the left psoas abscess site area. ASSESSMENT AND PLAN: 1. Psoas abscess. 2. Sepsis secondary to psoas abscess. 3. Schizophrenia. Plan is to continue the present medication. Follow up with the cultures.
--- NOTE | 2016-03-15 15:57 | P.PN ---
Subjective Principal diagnosis: Psoas abscess Patient doing much better today. His pain is improved. He describes minimal drainage now from the scrotal wound. Still having some purulent drainage from the drain catheter. Cultures are noted. Remains on antibiotics. Objective - Vital Signs Vital signs: Vital Signs Temp 98.5 F 03/15/16 14:55 Pulse 79 03/15/16 14:55 Resp 18 03/15/16 14:55 BP 127/63 03/15/16 14:55 Pulse Ox 96 03/15/16 14:55 Intake & Output 03/14/16 03/15/16 03/15/16 18:59 06:59 18:59 Intake Total 1100 Output Total 270 1005 450 Balance 830 -1005 -450 Intake: IV 100 Ampicillin-Sulbactam 3 gm 100 In Sodium Chloride 0.9% 100 ml @ 100 mls/hr IVPB ONCE STA Rx#:[id number] Intake, IV Titration 500 Amount Vancomycin 2,000 mg In 500 Sodium Chloride 0.9% 500 ml @ 167 mls/hr IVPB Q12HR [facility] Rx#:[id number] Oral 500 Output: Drainage 20 80 Left Lower Back 20 80 Urine 250 925 450 Other: Voiding Method Urinal Urinal Urinal # Voids 2 2 - Exam Abdomen soft, nontender, nondistended Scrotum with decreased erythema and decreased drainage - Labs CBC & Chem 7: 03/14/16 07:26 03/13/16 17:00 Labs: Abnormal Lab Results - Last 24 Hours (Table) 03/14/16 03/14/16 03/14/16 Range/Units 07:26 07:26 07:26 ESR 62 H (0-15) mm/hr Hemoglobin A1c 8.2 H (4.2-6.1) % Prealbumin 9 L (18-36) mg/dL Microbiology - Last 24 Hours (Table) 03/14/16 11:15 Gram Stain - Preliminary Aspirate Body Fluid Culture - Preliminary 03/14/16 11:15 Anaerobic Culture - Preliminary Aspirate Assessment and Plan (1) Psoas abscess Narrative/Plan: Recheck lab work in a.m. Dietary evaluation because of the patient's low. Albumin. Continue antibiotics per infectious disease. Status: Acute
[2016-03-15] MEDS: diphenhydrAMINE 25 MG CAP PO SCH (20:47)
--- NOTE | 2016-03-15 22:01 | P.PN ---
Subjective Principal diagnosis: Scrotal abscess 65-year-old male who has a history of bipolar disorder and schizophrenia presents to Hospital after his repair of the left scrotal cyst. There was a concern that he either had a lipoma or low-lying hernia within his inguinal canal at the time of the surgery. He was ligated in the time of surgery and he did well however after the surgery Center developed some purulent drainage out of his scrotum at the incision site. The volume of the purulent drainage continued to increase. And he was sent for an outpatient computed tomography scan. There is related there was evidence now of an abscess that tract to the psoas muscle with no evidence of any bowel involvement. Because of his fever and lack of improvement with oral antibiotic therapy and leukocytosis he was brought in to Hospital for intervention. He has been seen by surgery and urology and interventional radiology has placed the percutaneous drain into a psoas abscess to drain the area. He is living some purulent drainage on the scrotum but does feel better. He this time is denying high-grade fevers, chills or rigors. But does not feel well. His pain is improved since coming to hospital. Patient has noted there is now much less drainage from the scrotum and is overall feeling better. Objective - Vital Signs Vital signs: Vital Signs Temp 98.5 F 03/15/16 14:55 Pulse 79 03/15/16 14:55 Resp 18 03/15/16 16:00 BP 127/63 03/15/16 14:55 Pulse Ox 96 03/15/16 14:55 Intake & Output 03/15/16 03/15/16 03/16/16 06:59 18:59 06:59 Output Total 1005 490 Balance -1005 -490 Output: Drainage 80 40 Left Lower Back 80 40 Urine 925 450 Other: Voiding Method Urinal Urinal # Voids 2 - Exam 65-year-old male who is quite comfortable at this time but does still complain of some pain at the left scrotum HEENT: Anicteric conjunctiva are pink and moist nasal mucosa grossly intact without significant lesions, there is no thrush. Neck: The neck is supple without significant lymphadenopathy or thyromegaly. Lungs: Good bilateral air entry without significant crackles or wheezing. There is no significant bronchial sounds. There is no egophony or dullness. Heart: Regular rate and rhythm with an audible S1-S2, no S3 no S4. There is no significant murmur click or rub, PMI was nondisplaced. Abdomen: Positive bowel sounds soft and nontender without palpable masses or organomegaly. There was no guarding or rebound. Extremities: The upper extremities have excellent pulses they are symmetric, no significant petechiae or telangiectasia. No splinter hemorrhages were noted. The lower extremities are free from significant edema. The peripheral pulses were 2+ and symmetric. Neuro: Awake alert oriented to person place and time. There are no acute new gross focal sensory motor deficits. Skin: The left scrotum has evidence of the recent surgical intervention. There is still some swelling and induration to the scrotum. The area where there was the prior incision and drainage is no longer draining purulent material and is less tender than yesterday. There is some induration that travels the epididymis to the abdominal wall. It is not extremely tender. The testicle itself is not tender. Right testicle is nontender. Penis without lesions. - Labs CBC & Chem 7: 03/14/16 07:26 03/13/16 17:00 Labs: Abnormal Lab Results - Last 24 Hours (Table) 03/14/16 03/14/16 03/14/16 Range/Units 07:26 07:26 07:26 ESR 62 H (0-15) mm/hr Hemoglobin A1c 8.2 H (4.2-6.1) % Prealbumin 9 L (18-36) mg/dL Microbiology - Last 24 Hours (Table) 03/14/16 11:15 Gram Stain - Preliminary Aspirate Body Fluid Culture - Preliminary 03/14/16 11:15 Anaerobic Culture - Preliminary Aspirate Laboratory Results WBC 9.4 k/uL (3.8-10.6) 03/14/16 07:26 RBC 3.88 m/uL (4.30-5.90) L 03/14/16 07:26 Hgb 10.9 gm/dL (13.0-17.5) L 03/14/16 07:26 Hct 32.9 % (39.0-53.0) L 03/14/16 07:26 MCV 84.8 fL (80.0-100.0) 03/14/16 07: MCH 28.0 pg (25.0-35.0) 03/14/16 07:26 MCHC 33.0 g/dL (31.0-37.0) 03/14/16 07: RDW 14.2 % (11.5-15.5) 03/14/16 07: Plt Count 360 k/uL (150-450) 03/14/16 07: Neutrophils % 73 % 03/14/16 07: Lymphocytes % 17 % 03/14/16 07: Monocytes % 6 % 03/14/16 07: Eosinophils % 1 % 03/14/16 07: Basophils % 1 % 03/14/16 07: Neutrophils # 6.9 k/uL (1.3-7.7) 03/14/16 07: Lymphocytes # 1.6 k/uL (1.0-4.8) 03/14/16 07: Monocytes # 0.6 k/uL (0-1.0) 03/14/16 07: Eosinophils # 0.1 k/uL (0-0.7) 03/14/16: Basophils # 0.1 k/uL (0-0.2) 03/14/16 07: ESR 62 mm/hr (0-15) H 03/14/16: PT 12.4 sec (9.0-12.0) H 03/13/16 17:00 INR 1.3 (<1.1) 03/13/16 17:00 APTT 21.5 sec (22.0-30.0) L 03/13/16 17:00 Sodium 136 mmol/L (137-145) L 03/13/16 17:00 Potassium 4.8 mmol/L (3.5-5.1) 03/13/16 17:00 Chloride 100 mmol/L (98-107) 03/13/16 17:00 Carbon Dioxide 24 mmol/L (22-30) 03/13/16 17:00 Anion Gap 12 mmol/L 03/13/16 17:00 BUN 14 mg/dL (9-20) 03/13/16 17:00 Creatinine 1.12 mg/dL (0.66-1.25) 03/13/16 17:00 Est GFR (MDRD) Af Amer >60 (>60 ml/min/1.73 sqM) 03/13/16 17:00 Est GFR (MDRD) Non-Af >60 (>60 ml/min/1.73 sqM) 03/13/16 17:00 Glucose 128 mg/dL (74-99) H 03/13/16 17:[address] Glu mg/dL 189 mg/dL 03/14/16 07:26 Hemoglobin A1c 8.2 % (4.2-6.1) H 03/14/16 07:26 Plasma Lactic Acid Raffi 1.2 mmol/L (0.7-2.0) 03/13/16 17:00 Calcium 8.6 mg/dL (8.4-10.2) 03/13/16 17:00 Total Bilirubin 0.8 mg/dL (0.2-1.3) 03/13/16 17:00 AST 37 U/L (17-59) 03/13/16 17:00 ALT 35 U/L (21-72) 03/13/16 17:00 Alkaline Phosphatase 89 U/L (38-126) 03/13/16 17:00 Total Protein 6.6 g/dL (6.3-8.2) 03/13/16 17:00 Albumin 3.2 g/dL (3.5-5.0) L 03/13/16 17:00 Prealbumin 9 mg/dL (18-36) L 03/14/16 07:26 Urine Color Yellow 03/13/16 17:00 Urine Appearance Clear (Clear) 03/13/16 17:00 Urine pH 5.5 (5.0-8.0) 03/13/16 17:00 Ur Specific [place] 1.009 (1.001-1.035) 03/13/16 17:00 Urine Protein Negative (Negative) 03/13/16 17:00 Urine Glucose (UA) Negative (Negative) 03/13/16 17:00 Urine Ketones Negative (Negative) 03/13/16 17:00 Urine Blood Negative (Negative) 03/13/16 17:00 Urine Nitrate Negative (Negative) 03/13/16 17:00 Urine Bilirubin Negative (Negative) 03/13/16 17:00 Urine Urobilinogen 2.0 mg/dL (<2.0) 03/13/16 17:00 Ur Leukocyte Esterase Trace (Negative) H 03/13/16 17:00 Urine RBC 1 /hpf (0-5) 03/13/16 17:00 Urine WBC 1 /hpf (0-5) 03/13/16 17:00 Urine Mucus Rare /hpf (None) H 03/13/16 17:00 Microbiology 03/13/16 17:00 Blood Blood Culture - Preliminary No Growth after 48 hours 03/14/16 11:15 Aspirate Gram Stain - Preliminary 03/14/16 11:15 Aspirate Body Fluid Culture - Preliminary 03/13/16 17:00 Scrotum Gram Stain - Preliminary 03/13/16 17:00 Scrotum Wound Culture - Preliminary 03/13/16 17:00 Urine,Voided Urine Culture - Final 03/14/16 11:15 Aspirate Anaerobic Culture - Preliminary 03/13/16 17:00 Scrotum Anaerobic Culture - Preliminary Assessment and Plan (1) Psoas abscess Narrative/Plan: Pleasant 65-year-old male with a history of schizophrenia and bipolar disorder recently had a procedure to his left scrotum for a scrotal cyst. After the procedure is now developed difficulties with an infection at the site. Was having purulent drainage. Computed tomography scan shows evidence of the track of the infection to causing a psoas abscess. This has not been percutaneous drain. Antibiotic therapy is currently with ampicillin sulbactam and vancomycin which are prudent for the concerns to MRSA as well as routine urological pathogen such as enterococcus E. coli and strep. Cultures are in process and will further help direct antibiotic therapy. With a psoas abscess he likely will be on outpatient intravenous course of antibiotic therapy if that can be arranged. With his significant psychological history not clear that he would be a candidate for home intravenous antibiotic therapy. His leukocytosis is improving The fever is also improving There is no much less drainage since the percutaneous drain was applied. Blood cultures are negative and wound cultures are pending. Given this complex infection he would do well to have outpatient intravenous antibiotic therapy. We'll have to determine if this is an option. Status: Acute (2) Scrotal infection Status: Acute (3) Leukocytosis Status: Acute (4) Fever Status: Acute
[2016-03-16] MEDS: AMPICILLIN-SULBACTAM 3 GM in SODIUM CHLORIDE 0.9% 100 ML IVPB SCH ×5 (00:19→21:33)
[2016-03-16] MEDS: PANTOPRAZOLE 40 MG/10 ML VIAL IV SCH (07:32)
[2016-03-16] MEDS: ENOXAPARIN 40 MG/0.4 ML SYRINGE SQ SCH (07:32)
[2016-03-16] MEDS: LURASIDONE 40 MG TAB PO SCH (07:32)
[2016-03-16] MEDS: MULTIVITAMINS, THERA 1 EACH TAB PO SCH (07:32)
[2016-03-16] MEDS ORDERED: VANCOMYCIN TROUGH DUE 1 EACH MISC MISCELLANE ONE (08:00)
[2016-03-16 08:16] LABS: Basophils # (A) 0.1 k/uL (0-0.2); Basophils % (A) 1 %; CHCM 33.2; Eosinophils # (A) 0.1 k/uL (0-0.7); Eosinophils % (A) 2 %; HDW 3.21; HGB 10.8 gm/dL (13.0-17.5); Luc # (Auto) 0.16; Luc % (Auto) 2; Lymphocytes # (A) 1.9 k/uL (1.0-4.8); Lymphocytes % (A) 25 %; MCH 27.6 pg (25.0-35.0); MCHC 32.6 g/dL (31.0-37.0); MCV 84.6 fL (80.0-100.0); Mean Platelet Volume 7.3; Monocytes # (A) 0.5 k/uL (0-1.0); Monocytes % (A) 7 %; Neutrophils # (A) 4.8 k/uL (1.3-7.7); Neutrophils % (A) 64 %; RBC 3.91 m/uL (4.30-5.90); RDW 14.3 % (11.5-15.5); WBC 7.4 k/uL (3.8-10.6); WBC (Perox) 7.97
[2016-03-16 08:34] LABS: Anion Gap 9 mmol/L; Blood Urea Nitrogen 12 mg/dL (9-20); Calcium 8.3 mg/dL (8.4-10.2); Carbon Dioxide 25 mmol/L (22-30); Chloride 107 mmol/L (98-107); Glucose 112 mg/dL (74-99); Non-African American GFR(MDRD) >60 (>60 ml/min/1.73 sqM); Potassium 4.4 mmol/L (3.5-5.1); Sodium 141 mmol/L (137-145)
[2016-03-16] MEDS: VANCOMYCIN 2,000 MG in SODIUM CHLORIDE 0.9% 500 ML IVPB SCH (09:21)
--- NOTE | 2016-03-16 10:15 | P.PN ---
Progress Note - Text The patient is afebrile and says he has no pain. He is ambulatory and tolerating a regular diet. He no longer has any drainage from the scrotal opening. Some purulent material continues to drain from the percutaneously placed catheter. White blood count is 7400. Wound cultures are pending however at least one aerobic culture is no growth so far. Physical exam: Small amount of granulation tissue is noted at the site of the scrotal drainage. There is no significant scrotal edema. There is induration in the superior scrotum which appears to be decreased from last week. Impression: Psoas abscess with previous drainage through scrotum-improved. Recommendation: It may be helpful to irrigate the drainage catheter with a dilute antibiotic solution periodically once the final cultures are back. It does not appear that any further drainage of the scrotum will be necessary.
[2016-03-16 12:11] VITALS: BMI 38.5
--- NOTE | 2016-03-16 15:26 | PN ---
Patient was admitted for psoas abscess and patient is clinically doing well. Patient underwent CT-guided drainage and wound cultures are pending. REVIEW OF SYSTEMS: CARDIOVASCULAR: No chest pain, no orthopnea, no PND, no palpitations. PULMONARY: Denied any shortness of breath. No cough or hemoptysis. GASTROINTESTINAL: No diarrhea, nausea or vomiting. No abdominal pain. Normoactive bowel sounds. NEUROLOGIC: No headaches, no weakness, no numbness. Medications were reviewed. PHYSICAL EXAMINATION: VITAL SIGNS: Temperature 97.5, pulse of 66, respiratory rate of 18, blood pressure is 135/60, saturating at 98% on room air. GENERAL: The patient is alert and oriented x3, not in any acute distress. Well developed, well nourished. HEENT: Pupils are round and equally reacting to light. EOMI. No scleral icterus. No conjunctival pallor. Normocephalic, atraumatic. No pharyngeal erythema. No thyromegaly. CARDIOVASCULAR: S1 and S2 present. No murmurs, rubs, or gallops. PULMONARY: Chest is clear to auscultation, no wheezing or crackles. ABDOMEN: Soft, nontender, nondistended, normoactive bowel sounds. No palpable organomegaly. MUSCULOSKELETAL: No joint swelling or deformity. EXTREMITIES: No cyanosis, clubbing, or pedal edema. NEUROLOGICAL: Gross neurological examination did not reveal any focal deficits. DERMATOLOGIC: No significant change compared to yesterday. Medications were reviewed. LABORATORY DATA: CBC, CMP, no significant abnormality was appreciated compared to yesterday. Hemoglobin is stable. Leukocytosis resolved. Creatinine is 1.2 compared to 1.12 yesterday. Hemoglobin A1c of 8.2. ASSESSMENT AND PLAN: 1. Psoas abscess. 2. Sepsis secondary to psoas abscess. 3. Schizophrenia. 4. New onset diabetes mellitus. Patient will benefit from metformin upon discharge. 5. Awaiting culture and sensitivities to decide on discharge antibiotics.
--- NOTE | 2016-03-16 15:50 | P.PN ---
Subjective Principal diagnosis: Psoas abscess Patient doing much better today. Pain is minimal. Drainage is absent from the scrotum. Drainage from the cutaneous drain is improved. He is being started on oral hypoglycemics. PICC line was ordered but cannot be performed today. Objective - Vital Signs Vital signs: Vital Signs Temp 98.2 F 03/16/16 15:00 Pulse 65 03/16/16 15:00 Resp 18 03/16/16 07:57 BP 137/68 03/16/16 15:00 Pulse Ox 95 03/16/16 15:00 Intake & Output 03/15/16 03/16/16 03/16/16 18:59 06:59 18:59 Intake Total 800 1100 Output Total 490 20 20 Balance -522 773 4433 Weight 136.078 kg Intake: Intake, IV Titration 600 1100 Amount Ampicillin-Sulbactam 3 gm 100 100 In Sodium Chloride 0.9% 100 ml @ 100 mls/hr IVPB QID MEL Rx#:[id number] Vancomycin 2,000 mg In 500 500 Sodium Chloride 0.9% 500 ml @ 167 mls/hr IVPB Q12HR MEL Rx#:[id number] Vancomycin 2,000 mg In 500 Sodium Chloride 0.9% 500 ml @ 167 mls/hr IVPB Q16H MEL Rx#:[id number] Oral 200 Output: Drainage 40 20 20 Left Lower Back 40 20 20 Urine 450 Other: Voiding Method Urinal Toilet Toilet Urinal Urinal # Voids 2 1 3 - Exam Abdomen: Soft, nondistended, drain intact, scrotal wound with no drainage - Labs CBC & Chem 7: 03/16/16 07:36 03/16/16 07:36 Labs: Abnormal Lab Results - Last 24 Hours (Table) 03/16/16 03/16/16 Range/Units 07:36 07:36 RBC 3.91 L (4.30-5.90) m/uL Hgb 10.8 L (13.0-17.5) gm/dL Hct 33.0 L (39.0-53.0) % Glucose 112 H (74-99) mg/dL Calcium 8.3 L (8.4-10.2) mg/dL Microbiology - Last 24 Hours (Table) 03/14/16 11:15 Gram Stain - Preliminary Aspirate Body Fluid Culture - Preliminary Gram Positive Bacilli Isolated Assessment and Plan (1) Psoas abscess Narrative/Plan: Continue IV antibiotics. Await PICC line. Anticipate discharge Saturday. Status: Acute
[2016-03-16] MEDS: metFORMIN 500 MG TAB PO SCH (17:16)
[2016-03-16] MEDS: diphenhydrAMINE 25 MG CAP PO SCH (21:33)
--- NOTE | 2016-03-16 22:42 | P.PN ---
Subjective Principal diagnosis: Scrotal abscess 65-year-old male who has a history of bipolar disorder and schizophrenia presents to Hospital after his repair of the left scrotal cyst. There was a concern that he either had a lipoma or low-lying hernia within his inguinal canal at the time of the surgery. He was ligated in the time of surgery and he did well however after the surgery Center developed some purulent drainage out of his scrotum at the incision site. The volume of the purulent drainage continued to increase. And he was sent for an outpatient computed tomography scan. There is related there was evidence now of an abscess that tract to the psoas muscle with no evidence of any bowel involvement. Because of his fever and lack of improvement with oral antibiotic therapy and leukocytosis he was brought in to Hospital for intervention. He has been seen by surgery and urology and interventional radiology has placed the percutaneous drain into a psoas abscess to drain the area. He is living some purulent drainage on the scrotum but does feel better. He this time is denying high-grade fevers, chills or rigors. But does not feel well. His pain is improved since coming to hospital. Patient has noted there is now no drainage from the scrotum and is overall feeling better. Objective - Vital Signs Vital signs: Vital Signs Temp 98.9 F 03/16/16 22:09 Pulse 61 03/16/16 22:09 Resp 16 03/16/16 22:09 BP 155/74 03/16/16 22:09 Pulse Ox 95 03/16/16 22:09 Intake & Output 03/16/16 03/16/16 03/17/16 06:59 18:59 06:59 Intake Total 800 1100 Output Total 20 15 Balance 780 1085 Weight 136.078 kg Intake: Intake, IV Titration 600 1100 Amount Ampicillin-Sulbactam 3 gm 100 100 In Sodium Chloride 0.9% 100 ml @ 100 mls/hr IVPB QID MEL Rx#:[id number] Vancomycin 2,000 mg In 500 500 Sodium Chloride 0.9% 500 ml @ 167 mls/hr IVPB Q12HR MEL Rx#:[id number] Vancomycin 2,000 mg In 500 Sodium Chloride 0.9% 500 ml @ 167 mls/hr IVPB Q16H MEL Rx#:[id number] Oral 200 Output: Drainage 20 15 Left Lower Back 20 15 Other: Voiding Method Toilet Toilet Urinal Urinal # Voids 1 3 - Exam 65-year-old male who is quite comfortable at this time but does still complain of some pain at the left scrotum HEENT: Anicteric conjunctiva are pink and moist nasal mucosa grossly intact without significant lesions, there is no thrush. Neck: The neck is supple without significant lymphadenopathy or thyromegaly. Lungs: Good bilateral air entry without significant crackles or wheezing. There is no significant bronchial sounds. There is no egophony or dullness. Heart: Regular rate and rhythm with an audible S1-S2, no S3 no S4. There is no significant murmur click or rub, PMI was nondisplaced. Abdomen: Positive bowel sounds soft and nontender without palpable masses or organomegaly. There was no guarding or rebound. Extremities: The upper extremities have excellent pulses they are symmetric, no significant petechiae or telangiectasia. No splinter hemorrhages were noted. The lower extremities are free from significant edema. The peripheral pulses were 2+ and symmetric. Neuro: Awake alert oriented to person place and time. There are no acute new gross focal sensory motor deficits. Skin: The left scrotum has evidence of the recent surgical intervention. There is still some swelling and induration to the scrotum. The area where there was the prior incision and drainage is no longer draining purulent material and is less tender than before. There is some induration that travels the epididymis to the abdominal wall. It is not extremely tender. The testicle itself is not tender. Right testicle is nontender. Penis without lesions. - Labs CBC & Chem 7: 03/16/16 07:36 03/16/16 07:36 Labs: Abnormal Lab Results - Last 24 Hours (Table) 03/16/16 03/16/16 Range/Units 07:36 07:36 RBC 3.91 L (4.30-5.90) m/uL Hgb 10.8 L (13.0-17.5) gm/dL Hct 33.0 L (39.0-53.0) % Glucose 112 H (74-99) mg/dL Calcium 8.3 L (8.4-10.2) mg/dL Microbiology - Last 24 Hours (Table) 03/14/16 11:15 Gram Stain - Preliminary Aspirate Body Fluid Culture - Preliminary Gram Positive Bacilli Isolated Laboratory Results WBC 7.4 k/uL (3.8-10.6) 03/16/16 07:36 RBC 3.91 m/uL (4.30-5.90) L 03/16/16 07:36 Hgb 10.8 gm/dL (13.0-17.5) L 03/16/16 07:36 Hct 33.0 % (39.0-53.0) L 03/16/16 07:36 MCV 84.6 fL (80.0-100.0) 03/16/16 07:36 MCH 27.6 pg (25.0-35.0) 03/16/16 07:36 MCHC 32.6 g/dL (31.0-37.0) 03/16/16 07:36 RDW 14.3 % (11.5-15.5) 03/16/16 07:36 Plt Count 384 k/uL (150-450) 03/16/16 07:36 Neutrophils % 64 % 03/16/16 07:36 Lymphocytes % 25 % 03/16/16 07:36 Monocytes % 7 % 03/16/16 07:36 Eosinophils % 2 % 03/16/16 07:36 Basophils % 1 % 03/16/16 07:36 Neutrophils # 4.8 k/uL (1.3-7.7) 03/16/16 07:36 Lymphocytes # 1.9 k/uL (1.0-4.8) 03/16/16 07:36 Monocytes # 0.5 k/uL (0-1.0) 03/16/16 07:36 Eosinophils # 0.1 k/uL (0-0.7) 03/16/16 07:36 Basophils # 0.1 k/uL (0-0.2) 03/16/16 07:36 ESR 62 mm/hr (0-15) H 03/14/16 07:26 PT 12.4 sec (9.0-12.0) H 03/13/16 17:00 INR 1.3 (<1.1) 03/13/16 17:00 APTT 21.5 sec (22.0-30.0) L 03/13/16 17:00 Sodium 141 mmol/L (137-145) 03/16/16 07:36 Potassium 4.4 mmol/L (3.5-5.1) 03/16/16 07:36 Chloride 107 mmol/L (98-107) 03/16/16 07:36 Carbon Dioxide 25 mmol/L (22-30) 03/16/16 07:36 Anion Gap 9 mmol/L 03/16/16 07:36 BUN 12 mg/dL (9-20) 03/16/16 07:36 Creatinine 1.20 mg/dL (0.66-1.25) 03/16/16 07:36 Est GFR (MDRD) Af Amer >60 (>60 ml/min/1.73 sqM) 03/16/16 07:36 Est GFR (MDRD) Non-Af >60 (>60 ml/min/1.73 sqM) 03/16/16 07:36 Glucose 112 mg/dL (74-99) H 03/16/16 07:[address] Glu mg/dL 189 mg/dL 03/14/16 07:26 Hemoglobin A1c 8.2 % (4.2-6.1) H 03/14/16 07:26 Plasma Lactic Acid Raffi 1.2 mmol/L (0.7-2.0) 03/13/16 17:00 Calcium 8.3 mg/dL (8.4-10.2) L 03/16/16 07:36 Total Bilirubin 0.8 mg/dL (0.2-1.3) 03/13/16 17:00 AST 37 U/L (17-59) 03/13/16 17:00 ALT 35 U/L (21-72) 03/13/16 17:00 Alkaline Phosphatase 89 U/L (38-126) 03/13/16 17:00 Total Protein 6.6 g/dL (6.3-8.2) 03/13/16 17:00 Albumin 3.2 g/dL (3.5-5.0) L 03/13/16 17:00 Prealbumin 9 mg/dL (18-36) L 03/14/16 07:26 Urine Color Yellow 03/13/16 17:00 Urine Appearance Clear (Clear) 03/13/16 17:00 Urine pH 5.5 (5.0-8.0) 03/13/16 17:00 Ur Specific [place] 1.009 (1.001-1.035) 03/13/16 17:00 Urine Protein Negative (Negative) 03/13/16 17:00 Urine Glucose (UA) Negative (Negative) 03/13/16 17:00 Urine Ketones Negative (Negative) 03/13/16 17:00 Urine Blood Negative (Negative) 03/13/16 17:00 Urine Nitrate Negative (Negative) 03/13/16 17:00 Urine Bilirubin Negative (Negative) 03/13/16 17:00 Urine Urobilinogen 2.0 mg/dL (<2.0) 03/13/16 17:00 Ur Leukocyte Esterase Trace (Negative) H 03/13/16 17:00 Urine RBC 1 /hpf (0-5) 03/13/16 17:00 Urine WBC 1 /hpf (0-5) 03/13/16 17:00 Urine Mucus Rare /hpf (None) H 03/13/16 17:00 Vancomycin Trough 23.3 ug/mL 03/16/16 07:36 Microbiology 03/13/16 17:00 Blood Blood Culture - Preliminary No Growth after 72 hours 03/14/16 11:15 Aspirate Gram Stain - Preliminary 03/14/16 11:15 Aspirate Body Fluid Culture - Preliminary Gram Positive Bacilli Isolated 03/13/16 17:00 Scrotum Gram Stain - Final 03/13/16 17:00 Scrotum Wound Culture - Final 03/13/16 17:00 Urine,Voided Urine Culture - Final 03/14/16 11:15 Aspirate Anaerobic Culture - Preliminary 03/13/16 17:00 Scrotum Anaerobic Culture - Preliminary Assessment and Plan (1) Psoas abscess Narrative/Plan: Pleasant 65-year-old male with a history of schizophrenia and bipolar disorder recently had a procedure to his left scrotum for a scrotal cyst. After the procedure is now developed difficulties with an infection at the site. Was having purulent drainage. Computed tomography scan shows evidence of the track of the infection to causing a psoas abscess. This has not been percutaneous drain. Antibiotic therapy is currently with ampicillin sulbactam and vancomycin which are prudent for the concerns to MRSA as well as routine urological pathogen such as enterococcus E. coli and strep. Cultures are in process and will further help direct antibiotic therapy. With a psoas abscess he likely will be on outpatient intravenous course of antibiotic therapy if that can be arranged. PICC line is been requested. With the current cultures with plan on ertapenem which can be given on a 1 a day regimen which will be important in this situation. Patient is agreeable to this course of therapy. Home care has been consulted. The following the office after his discharge. Patient is on Lovenox and this will be held first PICC line placement Saturday prior to his discharge. His leukocytosis is improving Since the percutaneuos drain has been place the drainage form the scrotum has resolved Blood cultures are negative and wound cultures are pending. Given this complex infection he would do well to have outpatient intravenous antibiotic therapy. Status: Acute (2) Scrotal infection Status: Acute (3) Leukocytosis Status: Acute (4) Fever Status: Acute
[2016-03-17] MEDS ORDERED: VANCOMYCIN 2,000 MG in SODIUM CHLORIDE 0.9% 500 ML IVPB SCH ×2
[2016-03-17] MEDS: LURASIDONE 40 MG TAB PO SCH (08:00)
[2016-03-17] MEDS: AMPICILLIN-SULBACTAM 3 GM in SODIUM CHLORIDE 0.9% 100 ML IVPB SCH ×4 (08:01→21:36)
[2016-03-17] MEDS: metFORMIN 500 MG TAB PO SCH ×2 (08:01→17:21)
[2016-03-17] MEDS: PANTOPRAZOLE 40 MG TABLET PO SCH (08:01)
[2016-03-17 09:55] LABS: Basophils # (A) 0.1 k/uL (0-0.2); Basophils % (A) 1 %; CH 28.2; CHCM 32.8; Eosinophils # (A) 0.1 k/uL (0-0.7); Eosinophils % (A) 2 %; HCT 34.9 % (39.0-53.0); HDW 3.17; HGB 11.1 gm/dL (13.0-17.5); Luc # (Auto) 0.12; Luc % (Auto) 2; Lymphocytes # (A) 1.6 k/uL (1.0-4.8); Lymphocytes % (A) 22 %; MCH 27.4 pg (25.0-35.0); MCHC 31.8 g/dL (31.0-37.0); MCV 86.2 fL (80.0-100.0); Mean Platelet Volume 7.4; Monocytes # (A) 0.3 k/uL (0-1.0); Monocytes % (A) 5 %; Neutrophils # (A) 4.8 k/uL (1.3-7.7); Neutrophils % (A) 69 %; RBC 4.05 m/uL (4.30-5.90); RDW 14.6 % (11.5-15.5); WBC (Perox) 7.71
[2016-03-17] MEDS: ENOXAPARIN 40 MG/0.4 ML SYRINGE SQ SCH (09:59)
[2016-03-17 10:03] LABS: Anion Gap 12 mmol/L; Blood Urea Nitrogen 11 mg/dL (9-20); Calcium 8.7 mg/dL (8.4-10.2); Carbon Dioxide 23 mmol/L (22-30); Chloride 106 mmol/L (98-107); Glucose 234 mg/dL (74-99); Non-African American GFR(MDRD) >60 (>60 ml/min/1.73 sqM); Potassium 4.3 mmol/L (3.5-5.1); Sodium 141 mmol/L (137-145)
--- NOTE | 2016-03-17 10:12 | P.PN ---
Progress Note - Text Patient is stable. He is up in a chair relaxed. Had the percutaneous drainage of psoas abscess. Abdomen abdomen is soft. The drain is seropurulent draining about 15 mL's. over the last 24 hours which is slowly improving. Impression: Stable status post drainage of psoas abscess. Recommendation continued current treatment with IV antibiotics and monitoring.
[2016-03-17] MEDS: MULTIVITAMINS, THERA 1 EACH TAB PO SCH (11:53)
--- NOTE | 2016-03-17 17:04 | P.PN ---
Subjective Principal diagnosis: Scrotal abscess 65-year-old male who has a history of bipolar disorder and schizophrenia presents to Hospital after his repair of the left scrotal cyst. There was a concern that he either had a lipoma or low-lying hernia within his inguinal canal at the time of the surgery. He was ligated in the time of surgery and he did well however after the surgery Center developed some purulent drainage out of his scrotum at the incision site. The volume of the purulent drainage continued to increase. And he was sent for an outpatient computed tomography scan. There is related there was evidence now of an abscess that tract to the psoas muscle with no evidence of any bowel involvement. Because of his fever and lack of improvement with oral antibiotic therapy and leukocytosis he was brought in to Hospital for intervention. He has been seen by surgery and urology and interventional radiology has placed the percutaneous drain into a psoas abscess to drain the area. He is living some purulent drainage on the scrotum but does feel better. He this time is denying high-grade fevers, chills or rigors. But does not feel well. His pain is improved since coming to hospital. there is no drainage from the scrotum and is overall feeling better. Objective - Vital Signs Vital signs: Vital Signs Temp 98.0 F 03/17/16 14:29 Pulse 67 03/17/16 14:29 Resp 16 03/17/16 14:29 BP 120/70 03/17/16 14:29 Pulse Ox 95 03/17/16 14:29 Intake & Output 03/16/16 03/17/16 03/17/16 18:59 06:59 18:59 Intake Total 1100 550 820 Output Total 15 Balance 1085 550 820 Weight 136.078 kg Intake: Intake, IV Titration 1100 100 100 Amount Ampicillin-Sulbactam 3 gm 100 100 100 In Sodium Chloride 0.9% 100 ml @ 100 mls/hr IVPB QID MEL Rx#:[id number] Vancomycin 2,000 mg In 500 Sodium Chloride 0.9% 500 ml @ 167 mls/hr IVPB Q12HR MEL Rx#:[id number] Vancomycin 2,000 mg In 500 Sodium Chloride 0.9% 500 ml @ 167 mls/hr IVPB Q16H MEL Rx#:[id number] Oral 450 720 Output: Drainage 15 Left Lower Back 15 Other: Voiding Method Toilet Toilet Toilet Urinal Urinal Urinal # Voids 3 2 - Exam 65-year-old male who is quite comfortable at this time but does still complain of some pain at the left scrotum HEENT: Anicteric conjunctiva are pink and moist nasal mucosa grossly intact without significant lesions, there is no thrush. Neck: The neck is supple without significant lymphadenopathy or thyromegaly. Lungs: Good bilateral air entry without significant crackles or wheezing. There is no significant bronchial sounds. There is no egophony or dullness. Heart: Regular rate and rhythm with an audible S1-S2, no S3 no S4. There is no significant murmur click or rub, PMI was nondisplaced. Abdomen: Positive bowel sounds soft and nontender without palpable masses or organomegaly. There was no guarding or rebound. Extremities: The upper extremities have excellent pulses they are symmetric, no significant petechiae or telangiectasia. No splinter hemorrhages were noted. The lower extremities are free from significant edema. The peripheral pulses were 2+ and symmetric. Neuro: Awake alert oriented to person place and time. There are no acute new gross focal sensory motor deficits. Skin: The left scrotum has evidence of the recent surgical intervention. There is still some swelling and induration to the scrotum. The area where there was the prior incision and drainage is no longer draining purulent material and is less tender than before. There is improvement in the induration that travels the epididymis to the abdominal wall. It is not extremely tender. The testicle itself is not tender. Right testicle is nontender. Penis without lesions. - Labs CBC & Chem 7: 03/17/16 09:22 03/17/16 09:22 Labs: Abnormal Lab Results - Last 24 Hours (Table) 03/17/16 03/17/16 Range/Units 09:22 09:22 RBC 4.05 L (4.30-5.90) m/uL Hgb 11.1 L (13.0-17.5) gm/dL Hct 34.9 L (39.0-53.0) % Glucose 234 H (74-99) mg/dL Microbiology - Last 24 Hours (Table) 03/14/16 11:15 Gram Stain - Preliminary Aspirate Body Fluid Culture - Preliminary Gram Positive Bacilli Isolated Assessment and Plan (1) Psoas abscess Narrative/Plan: Pleasant 65-year-old male with a history of schizophrenia and bipolar disorder recently had a procedure to his left scrotum for a scrotal cyst. After the procedure is now developed difficulties with an infection at the site. Was having purulent drainage. Computed tomography scan shows evidence of the track of the infection to causing a psoas abscess. This has not been percutaneous drain. Antibiotic therapy is currently with ampicillin sulbactam and vancomycin which are prudent for the concerns to MRSA as well as routine urological pathogen such as enterococcus E. coli and strep. Cultures are in process and will further help direct antibiotic therapy. With a psoas abscess he likely will be on outpatient intravenous course of antibiotic therapy if that can be arranged. PICC line is been requested. With the current cultures with plan on ertapenem which can be given on a 1 a day regimen which will be important in this situation. Patient is agreeable to this course of therapy. Home care has been consulted. The following the office after his discharge. Patient is on Lovenox and this will be held first PICC line placement Saturday prior to his discharge. His leukocytosis is improving Since the percutaneuos drain has been place the drainage form the scrotum has resolved Blood cultures are negative and wound cultures are pending. Given this complex infection he would do well to have outpatient intravenous antibiotic therapy. Status: Acute (2) Scrotal infection Status: Acute (3) Leukocytosis Status: Acute (4) Fever Status: Acute
--- NOTE | 2016-03-17 21:13 | PN ---
DATE OF SERVICE: 03/17/2016 This 65-year-old gentleman who was admitted with psoas abscess had a procedure on the left scrotum for a scrotal cyst. The patient is on vancomycin and Unasyn. PICC line has been requested by Dr. Mendez. Dr. Mendez and Surgery are following the patient closely. Glucose is improving. PAST MEDICAL HISTORY: Reviewed. The current medications are reviewed and include: 1. Tylenol 650 q.6 p.r.n. 2. Rolla. 3. Unasyn q.i.d. 4. Benadryl. 5. Lovenox. 6. Latuda. 7. Glucophage. 8. Multivitamins. 9. Narcan. 10. Naprosyn. 11. Zofran. 12. Protonix. PHYSICAL EXAMINATION: Patient is alert, oriented x3. Pulse is 67, blood pressure 120/70, respirations 16, temperature 98 degrees, pulse ox 94% on room air. HEENT: Conjunctivae normal. Oral mucosa moist. NECK: No jugular venous distention. No carotid bruit. No lymph node enlargement. CARDIOVASCULAR: S1 and S2, muffled. No S3, no S4. RESPIRATORY: Breath sounds diminished at the bases. No rhonchi, no crackles. ABDOMEN: Soft, obese, nontender, no mass palpable. LEGS: No edema, no swelling. NERVOUS SYSTEM: No focal deficits. LABS: WBC 7, hemoglobin 11, glucose 234. ASSESSMENT: 1. Acute psoas abscess in the left side, status post drainage. 2. Growing gram-positive bacillary. 3. Anaerobic gram-negative bacilli in the scrotal abscess. 4. Anemia, anemia of chronic disease. 5. Increased WBC, present on admission. 6. Increased random blood sugar and diabetes mellitus type 2. 7. History of degenerative joint disease. 8. Past concussions. 9. History of nephrolithiasis. 10. Adenoidectomy. 11. Hydrocele. 12. Bipolar, depression, schizophrenia. 13. FULL CODE. 14. Obesity, body mass index 38.5. RECOMMENDATIONS AND DISCUSSION: In this 65-year-old gentleman who presented with multiple complex medical issues, will monitor the patient closely, continue the current medications and symptomatic treatment. Continue the broad-spectrum IV antibiotics. I would also recommend monitor blood sugars closely. Otherwise, continue with metformin for now. Blood sugar is elevated. The patient will require insulin for the short term basis. Otherwise, closely follow with Surgery. DVT prophylaxis. Guarded prognosis because of multiple complex medical issues. Further recommendations to follow. See orders for details. Repeat labs will be ordered.
[2016-03-17 21:34] LABS: Glucose,Whole Blood 136 mg/dL (75-99)
[2016-03-17] MEDS: diphenhydrAMINE 25 MG CAP PO SCH (21:35)
[2016-03-17] MEDS: INSULIN LISPRO (humaLOG) 300 UNIT/3 ML VIAL SQ SCH (21:36)
[2016-03-18 07:34] LABS: Basophils % (A) 1 %; CH 27.9; CHCM 32.7; Eosinophils # (A) 0.2 k/uL (0-0.7); Eosinophils % (A) 3 %; HCT 33.4 % (39.0-53.0); HDW 3.18; HGB 10.6 gm/dL (13.0-17.5); Luc # (Auto) 0.15; Luc % (Auto) 2; Lymphocytes # (A) 1.6 k/uL (1.0-4.8); Lymphocytes % (A) 20 %; MCH 27.1 pg (25.0-35.0); MCHC 31.7 g/dL (31.0-37.0); MCV 85.5 fL (80.0-100.0); Mean Platelet Volume 6.5; Monocytes # (A) 0.5 k/uL (0-1.0); Monocytes % (A) 6 %; Neutrophils # (A) 5.5 k/uL (1.3-7.7); Neutrophils % (A) 69 %; RDW 14.5 % (11.5-15.5); WBC (Perox) 8.71
[2016-03-18 07:39] LABS: Glucose,Whole Blood 115 mg/dL (75-99)
[2016-03-18] MEDS: AMPICILLIN-SULBACTAM 3 GM in SODIUM CHLORIDE 0.9% 100 ML IVPB SCH ×3 (07:40→21:12)
[2016-03-18] MEDS: PANTOPRAZOLE 40 MG TABLET PO SCH (07:40)
[2016-03-18] MEDS: metFORMIN 500 MG TAB PO SCH ×2 (07:40→17:33)
[2016-03-18] MEDS: LURASIDONE 40 MG TAB PO SCH (07:40)
[2016-03-18] MEDS: INSULIN LISPRO (humaLOG) 300 UNIT/3 ML VIAL SQ SCH ×4 (07:41→21:12)
[2016-03-18 07:46] LABS: Anion Gap 10 mmol/L; Blood Urea Nitrogen 12 mg/dL (9-20); Carbon Dioxide 27 mmol/L (22-30); Chloride 106 mmol/L (98-107); Glucose 110 mg/dL (74-99); Non-African American GFR(MDRD) 57 (>60 ml/min/1.73 sqM); Potassium 4.5 mmol/L (3.5-5.1); Sodium 143 mmol/L (137-145)
[2016-03-18 12:26] LABS: Glucose,Whole Blood 159 mg/dL (75-99)
[2016-03-18] MEDS: MULTIVITAMINS, THERA 1 EACH TAB PO SCH (12:49)
--- NOTE | 2016-03-18 15:57 | P.PN ---
Progress Note - Text Patient is stable. Reports no significant pain. He is a on the phone having conversation for prolonged period. I notices a drain there is draining very minimal amounts now about 15 mL several last 24 hours. Impression stable status post drainage of psoas abscess. Progressive improvement. Recommend continued current treatment with IV antibiotics and local care.
[2016-03-18 16:59] LABS: Glucose,Whole Blood 114 mg/dL (75-99)
[2016-03-18 20:25] LABS: Glucose,Whole Blood 122 mg/dL (75-99)
[2016-03-18] MEDS: diphenhydrAMINE 25 MG CAP PO SCH (21:12)
[2016-03-18] MEDS: HYDROcodone/APAP 5-325MG 1 EACH TAB PO PRN (21:20)
[2016-03-19] MEDS: AMPICILLIN-SULBACTAM 3 GM in SODIUM CHLORIDE 0.9% 100 ML IVPB SCH ×2 (05:37→13:04)
[2016-03-19 07:45] LABS: Glucose,Whole Blood 109 mg/dL (75-99)
[2016-03-19 08:17] VITALS: BP 156/79; PULSE 70; RESP 16; TEMP 97.8
[2016-03-19] MEDS: LURASIDONE 40 MG TAB PO SCH (09:15)
[2016-03-19] MEDS: metFORMIN 500 MG TAB PO SCH (09:15)
[2016-03-19] MEDS: INSULIN LISPRO (humaLOG) 300 UNIT/3 ML VIAL SQ SCH ×2 (09:15→13:04)
[2016-03-19] MEDS: PANTOPRAZOLE 40 MG TABLET PO SCH (09:16)
--- NOTE | 2016-03-19 10:07 | PN ---
DATE OF SERVICE: 03/18/2016 This is a 65-year-old gentleman admitted with psoas abscess and drainage. The patient is awaiting a PICC line placement. Multiple consultants are following the patient. The culture report showed multiple organisms including Group D enterococcus and other gram-negative bacilli and gram-positive bacilli also. No chest pain, no palpitation, no fever. On exam, alert and oriented x3. Pulse 103, blood pressure 192/80, respirations 16, temperature is 98.4, pulse ox 98% on room air. HEENT: Conjunctivae normal. NECK: No jugular venous distension. CARDIOVASCULAR: S1, S2, muffled. RESPIRATORY: Breath sounds diminished at the bases, no rhonchi, no crackles. Abdomen is soft, nontender. EXTREMITIES: Legs no edema, no swelling. NERVOUS SYSTEM: No focal deficits. Labs are at this time WBC 8, hemoglobin is 10.6. Accu-Cheks are noted. ASSESSMENT: 1. Acute psoas abscess on the left side, status post drainage. 2. Cultures growing multiple organisms including Group D enterococcus and anaerobic gram-negative bacilli and gram-positive bacilli. 3. Scrotal abscess. 4. Anemia, anemia of chronic disease. 5. Increased WBC, present on admission. 6. Increased random blood sugar and as well as diabetes mellitus type 2. 7. History of degenerative joint disease. 8. Past concussions. 9. History of nephrolithiasis. 10. History of adenoidectomy. 11. History of hydrocele. 12. Bipolar depression, schizophrenia history. 13. Obesity, body mass index of 38.5. 14. FULL CODE. RECOMMENDATION: In this 65-year-old gentleman who presented with multiple medical problems, will continue with the current medication. Continue with the symptomatic treatment. Continue with empiric antibiotics. Await Radiology for put in the PICC line. Closely follow Infectious Disease, guarded prognosis. Further recommendations to follow.
[2016-03-19] MEDS ORDERED: LIDOCAINE 2% INJ 20 MG/ML SQ ONE (11:02)
--- NOTE | 2016-03-19 11:26 | IR ---
PICC LINE PLACEMENT: HISTORY: Infection requiring long-term antibiotic therapy PROCEDURE: Ultrasound and fluoroscopic guidance of PICC line placement. COMPLICATIONS: None ANESTHESIA: 1. 1% Lidocaine locally. FINDINGS/TECHNIQUE: The procedure was explained to the patient. The risks, complications, benefits and alternatives were discussed and any questions were answered. Informed consent was obtained. The patient was placed supine on the fluoroscopic table and prepped and draped in the usual sterile [facility] ion. Utilizing a 21 gauge needle and sonographic and fluoroscopic guidance, access in the vein was achieved and there is placement of a 0.018 guidewire. The vein is patent. A 4-F sheath was placed o jonnathan the guidewire. The guidewire and dilator were removed and a 4-F. PICC line was placed through th e sheath with the tip at the level of the SVC. The sheath was removed, the catheter was flushed and sutured into position. The patient was stable throughout the procedure and remained stable upon disc harge from the Department of Radiology. The vein puncture was patent under ultrasound. A sterling scale image was obtained to document patency of the vein punctured. All elements of the maximal barrier technique were utilized. FLUOROSCOPY TIME: 0.1 minute IMPRESSION: Successful PICC line placement under ultrasound and fluoroscopic guidance.
[2016-03-19 12:13] LABS: Anion Gap 12 mmol/L; Basophils # (A) 0.2 k/uL (0-0.2); Basophils % (A) 2 %; Blood Urea Nitrogen 12 mg/dL (9-20); CH 28.2; CHCM 33.3; Calcium 9.4 mg/dL (8.4-10.2); Carbon Dioxide 26 mmol/L (22-30); Chloride 102 mmol/L (98-107); Eosinophils # (A) 0.2 k/uL (0-0.7); Eosinophils % (A) 2 %; Glucose 115 mg/dL (74-99); HDW 3.18; HGB 11.7 gm/dL (13.0-17.5); Luc # (Auto) 0.18; Luc % (Auto) 2; Lymphocytes # (A) 2.5 k/uL (1.0-4.8); Lymphocytes % (A) 24 %; MCH 27.5 pg (25.0-35.0); MCHC 32.4 g/dL (31.0-37.0); Mean Platelet Volume 7.4; Monocytes # (A) 0.6 k/uL (0-1.0); Monocytes % (A) 6 %; Neutrophils # (A) 6.8 k/uL (1.3-7.7); Neutrophils % (A) 65 %; Non-African American GFR(MDRD) 56 (>60 ml/min/1.73 sqM); Potassium 4.3 mmol/L (3.5-5.1); RBC 4.24 m/uL (4.30-5.90); RDW 14.8 % (11.5-15.5); Sodium 140 mmol/L (137-145); WBC 10.5 k/uL (3.8-10.6)
[2016-03-19] MEDS: MULTIVITAMINS, THERA 1 EACH TAB PO SCH (13:04)
--- NOTE | 2016-03-19 19:24 | PN ---
DATE OF SERVICE: 03/19/2016 This 65-year-old gentleman admitted with acute psoas abscess had drainage. The patient is scheduled to have in the outpatient setting antibiotics. No chest pain or palpitation. No fever. On exam, alert and oriented times three. Pulse 70. Blood pressure 140/79. Respiratory rate 16. Temperature 97.8. Pulse ox 97% on room air. HEENT: Conjunctivae normal. NECK: No jugular venous distention. CARDIOVASCULAR: S1, S2 muffled. RESPIRATORY: Breath sounds diminished at the bases. No rhonchi. No crackles. ABDOMEN: Soft, nontender. EXTREMITIES: Legs no edema. No swelling. CENTRAL NERVOUS SYSTEM: No focal deficits. MAVIS drain present. LABS: WBC 10.7, hemoglobin 11.7, creatinine is 1.70. ASSESSMENT: 1. Acute psoas abscess on the left side, status post drainage. 2. Cultures growing multiple organisms including group B enterococcus and gram-negative bacilli and gram-positive bacilli. 3. Scrotal abscess. 4. Anemia of chronic disease. 5. Increased white blood cell count, present on admission. 6. Increased random blood sugar as well as Diabetes mellitus type 2. 7. History of degenerative joint disease. 9. History of nephrolithiasis. 10. History of adenoidectomy. 11. History of hydrocele. 12. History of bipolar depression. 14. Obesity, body mass index 38.5. 15. FULL CODE. RECOMMENDATIONS AND DISCUSSION: I recommend to continue current medications, continue to monitor. Symptomatic treatment. Otherwise, continue with antibiotics per surgery. Follow close with primary physician Dr. Hunt. Further recommendations to follow. MTDD
--- NOTE | 2016-04-03 12:24 | P.DS ---
Providers Date of admission: 03/13/16 19:32 Attending physician: Milo Camp Consults: 03/13/16 19:34 Consult Physician Urgent Consulting Provider: Vineet Shabazz Consult Reason/Comments: scrotal infection Do you want consulting provider notified?: Already Contacted 03/14/16 08:40 Consult Physician Routine Consulting Provider: Ronald Mendez Consult Reason/Comments: Psoas abscess Do you want consulting provider notified?: Yes 03/14/16 11:44 Consult Physician Routine Consulting Provider: Tremayne Mace Consult Reason/Comments: Medical management Do you want consulting provider notified?: Yes Primary care physician: Marilee Abdi - Discharge Diagnosis(es) (1) Psoas abscess Patient was hospitalized after a outpatient CAT scan revealed a abscess involving the left retroperitoneum. Consultations were placed to medicine and infectious disease urology and interventional radiology after he was admitted. He underwent a percutaneous drain placement. He was kept on IV antibiotics. Gradually the drain output improved. A PICC line was placed. The etiology of this infection was thought to be an ascending infection after his prior scrotal surgery. The drainage from his scrotal wound had decreased dramatically once the drain was in place. After discharge she was asked to follow-up with both myself urology and infectious disease in addition to his primary care physician. Status: Acute Patient Condition at Discharge: Fair Plan - Discharge Summary New Discharge Prescriptions: Ertapenem [INVanz] 1 gm IVPB Q24H #14 bag HYDROcodone/APAP 5-325MG [Confluence 5-325] 1 each PO Q4HR PRN #20 tab PRN Reason: Moderate Pain Pantoprazole [Protonix] 40 mg PO DAILY #30 tablet. metFORMIN HCL [Glucophage] 500 mg PO BID-W/MEALS #60 tab Discharge Medication List Biotin 5 mg PO DAILY 01/23/16 [History] Lurasidone HCl [Latuda] 20 mg PO DAILY 01/23/16 [History] Multivitamin/Iron/Folic Acid [Centrum Complete Multivit Tab] 1 tab PO DAILY 07/03 [History] Naproxen 500 mg PO Q12HR PRN 01/23/16 [History] Ertapenem [INVanz] 1 gm IVPB Q24H #14 bag 03/16/16 [Rx] HYDROcodone/APAP 5-325MG [Confluence 5-325] 1 each PO Q4HR PRN #20 tab 03/19/16 [Rx] Pantoprazole [Protonix] 40 mg PO DAILY #30 tablet. 03/19/16 [Rx] metFORMIN HCL [Glucophage] 500 mg PO BID-W/MEALS #60 tab 03/19/16 [Rx] Follow up Appointment(s)/Referral(s): Trinidad Hunt MD [Primary Care Provider] - 03/26/16 10:10 am Ronald Mendez MD [STAFF PHYSICIAN] - 04/05/16 4:30 pm Jordon Millard MD [STAFF PHYSICIAN] - 03/27/16 3:10 pm Ambulatory/Diagnostic Orders: Basic Metabolic Panel [LAB.AMB] Location: Determined By Patient Complete Blood Count w/diff [LAB.AMB] Location: Determined By Patient Miscellaneous Lab Order [LAB.AMB] Location: Determined By Patient Patient Instructions/Handouts: Hydrocodone/Acetaminophen (By mouth), Metformin (By mouth), Pantoprazole (By mouth), Ertapenem (By injection) Activity/Diet/Wound Care/Special Instructions: Pending Dr. Camp clearance. [facility]-[phone] pt to go to [facility] at 12:15 for his infusion for 13 days On License Of [facility] [phone] Diet: Consistent carb Accu-Cheks before meals and at bedtime Activity: Limited until follow up Hemoglobin A1c 8.2, outpatient diabetic education, glucometer and supplies to be arranged by case management Discharge Disposition: HOME SELF-CARE
--- NOTE | 2016-04-24 11:55 | CDI ---
Please notify me if this is not the adequate way to addend this document. The patient did have sepsis on admission as per Dr. Benton's in his note. Please include this with the discharge summary. Aravind Gillis [address] [facility] [place] [address] Documentation Clarification Form Date: 04/24/2016 11:14:00 AM From: Chacha Garza Phone: Admit Date: 03/13/2016 7:32:00 PM Patient Name: Sebastian Ferrara Visit Number: [id number] Discharge Date: Dr. Milo Camp Sepsis is documented in Dr. Benton's consult note and in his progress notes but it is not documented in your discharge summary. Patient history/risk factors Psoas abscess following excision of scrotal cyst Clinical indicators: Drainage of thick purulent fluid from wound Lab findings: Lactic acid 1.2, WBC 14.7 Vital Signs: T. 101.9, P 73, R 20, BP 124/58 Treatment: IV Ampicillin, IV Vancomycin In your professional opinion, can you please clarify if Sepsis was Ruled In or Ruled Out? Other Unable to determine Please document in your progress notes and discharge summary in order to capture severity of illness and risk of mortality. Include clinical findings that support your diagnosis. FYI: Press F11 to launch patient chart. Place X here if this finding has no clinical significance, is not applicable or if you are not able to provide any additional documentation. Patient was admitted with sepsis related to his psoas abscess. This sepsis gradually improved throughout his hospital stay. ZIA
== END 2016-03-19 13:10 | disposition home or self-care (01) | DRG 862 ==
LOC: EC 15:50 → 5MS5E 19:32
PROVIDERS: ADMIT Surgery; ATTEND Surgery
PROC: 0J9C30Z Drainage of Pelvic Region Subcutaneous Tissue and Fascia with Drainage Device, Percutaneous Approach (ICD-10-PCS; principal; 2016-03-14)
PROC: 02HV33Z Insertion of Infusion Device into Superior Vena Cava, Percutaneous Approach (ICD-10-PCS; 2016-03-19 11:00)
DX: T81.4XXA Infection following a procedure, initial encounter (principal); K68.12 Psoas muscle abscess; A41.9 Sepsis, unspecified organism; N13.2 Hydronephrosis with renal and ureteral calculous obstruction; E11.65 Type 2 diabetes mellitus with hyperglycemia; F20.9 Schizophrenia, unspecified; I10 Essential (primary) hypertension; D63.8 Anemia in other chronic diseases classified elsewhere; E66.9 Obesity, unspecified; F17.200 Nicotine dependence, unspecified, uncomplicated; N49.2 Inflammatory disorders of scrotum; M19.90 Unspecified osteoarthritis, unspecified site; F32.9 Major depressive disorder, single episode, unspecified; Z68.38 Body mass index [BMI] 38.0-38.9, adult; Z85.828 Personal history of other malignant neoplasm of skin; Z79.899 Other long term (current) drug therapy
CPT/HCPCS: 36415; 36569; 75989; 76870; 76937; 77001; 77012; 80048; 80053; 80202; 81001; 83036; 83605; 84134; 85025; 85610; 85652; 85730; 87040; 87070; 87075; 87077; 87086; 87186; 87205; 93975; 94760; 96365; 96366; 96375; 99285

== ENCOUNTER → 2016-07-27 | Outpatient (CLI) | payer MEDICARE, OTHER ==
--- NOTE | 2016-07-27 15:48 | US ---
EXAMINATION TYPE: US kidneys/renal and bladder DATE OF EXAM: 07/27/2016 COMPARISON: NONE CLINICAL HISTORY: N28.9 KNOWN RENAL DISEASE TRACT INFECTION. Diabetic, abnormal labs, back pain EXAM MEASUREMENTS: Right Kidney: 12.1 x 5.4 x 5.7 cm Left Kidney: 9.6 x 3.8 x 5.7 cm Right Kidney: wnl Left Kidney: 1.4cm inferior exophytic cyst seen Bladder: wnl Bilateral Jets seen: Yes Left lower pole cyst does not meet the requirements of a simple cyst. IMPRESSION: 1.4 CM EXOPHYTIC, HYPOECHOIC MASS ARISING FROM THE LOWER POLE OF THE LEFT KIDNEY DOES NOT MEET THE RE QUIREMENTS OF SIMPLE CYST. FURTHER INVESTIGATION WITH CT OR MR WOULD BE SUGGESTED.
== END | disposition home or self-care (01) ==
LOC: RADUSWWP 15:09
PROVIDERS: ATTEND Internal Medicine
DX: N28.89 Other specified disorders of kidney and ureter (principal)
CPT/HCPCS: 76770

== ENCOUNTER → 2016-09-26 | Outpatient (CLI) | payer MEDICARE ==
[2016-09-26 14:30] LABS: Blood Urea Nitrogen 22 mg/dL (9-20); Non-African American GFR(MDRD) >60 (>60 ml/min/1.73 sqM)
--- NOTE | 2016-09-26 15:43 | CT ---
EXAMINATION TYPE: CT abdomen wo/w con DATE OF EXAM: 09/26/2016 COMPARISON: Ultrasound 07/27/2016 HISTORY: Complex renal cyst-left lower pole CT DLP: 3563.8 mGycm Automated exposure control for dose reduction was used. TECHNIQUE: Helical acquisition of images was performed from the lung bases through the top of iliac crest to include entire abdomen. CONTRAST: Performed with Oral Contrast and with IV Contrast, patient injected with 100 mL of Omnipaque 300. FINDINGS: LUNG BASES: No significant abnormality is appreciated. LIVER/GB: The liver is enlarged and may be low in attenuation suggestive of hepatic steatosis. Gallbl adder appears contracted. PANCREAS: No significant abnormality is seen. SPLEEN: No significant abnormality is seen. ADRENALS: No significant abnormality is seen. KIDNEYS: Exophytic cyst at the lower pole of the left kidney shows no abnormal enhancement following contrast administration and measures approximately 19mm. Hounsfield unit measurements suggest simple fluid. Some perinephric fluid is present on the left as compared to the right. BOWEL: Some questionable small bowel wall thickening noted incidentally, correlate to exclude enteri tis. LYMPH NODES: No significant abnormality is appreciated. OSSEOUS STRUCTURES: No significant abnormality is seen. FREE AIR: No Free Air visible ASCITES: None visible. RETROPERITONEAL ADENOPATHY: No Retroperitoneal Adenopathy visible. OTHER: There is a spinal curvature present. Degenerative disc changes in the visualized spine. Additi onal findings above. IMPRESSION: FINDINGS WITHIN THE LEFT KIDNEY FELT LIKELY TO REPRESENT SIMPLE CYST, CONSIDER SHORT INTERVAL FOLLOW- UP TO ASSESS FOR STABILITY.
== END | disposition home or self-care (01) ==
LOC: RADCTMAIN 13:46
PROVIDERS: ATTEND Urology
DX: N28.1 Cyst of kidney, acquired (principal)
CPT/HCPCS: 82565; 84520; 74170; 36415; Q9967

== ENCOUNTER 2017-03-06 11:48 | Inpatient (IN) | payer MEDICARE, OTHER ==
--- NOTE | 2017-03-06 12:39 | ED ---
General Adult HPI - General Chief complaint: Skin/Abscess/Foreign Body Stated complaint: Toe infection Time Seen by Provider: 03/06/17 12:23 Source: patient, RN notes reviewed Mode of arrival: ambulatory Limitations: no limitations - History of Present Illness Initial comments: 66-year-old male presents to the emergency Department chief complaint of left foot swelling and redness until infection. He does see Dr. Arzate for infectious disease for left toe infection that he states he still was normal. He states over the last 2 days her becomes hot red and swollen. He is a diabetic. He states he changed his insert some issues he is wondering if that maybe is what contributed to this. He denies any fevers with this. He denies any nausea vomiting. Patient denies any recent fever, chills, shortness of breath, chest pain, back pain, abdominal pain, nausea vomiting, numbness or tingling, dysuria or hematuria, constipation or diarrhea, headaches or visual changes, or any other current symptoms. - Related Data Home Medications Medication Instructions Recorded Confirmed Biotin 5 mg PO DAILY 01/23/16 03/06/17 Naproxen 500 mg PO Q12HR PRN 01/23/16 03/06/17 Glimepiride [Amaryl] 2 mg PO DAILY 04/18/16 03/06/17 Ascorbic Acid [Vitamin C] 500 mg PO DAILY 03/06/17 03/06/17 Baclofen 10 mg PO DAILY PRN 03/06/17 03/06/17 Brexpiprazole [Rexulti] 1 mg PO HS 03/06/17 03/06/17 Docusate [Colace] 100 mg PO DAILY 03/06/17 03/06/17 Ketoconazole 2% Cream [Nizoral 2%] 1 applic TOPICAL BID 03/06/17 03/06/17 Lisinopril [Zestril] 5 mg PO DAILY 03/06/17 03/06/17 Pravastatin Sodium [Pravachol] 5 mg PO DAILY 03/06/17 03/06/17 Tribulus Gold 250mg 250 mg PO DAILY 03/06/17 03/06/17 Allergies Allergy/AdvReac Type Severity Reaction Status Date / Time wool Allergy Rash/Hives Verified 03/06/17 13:03 Review of Systems ROS Statement: Those systems with pertinent positive or pertinent negative responses have been documented in the HPI. ROS Other: All systems not noted in ROS Statement are negative. Past Medical History Past Medical History: Cancer, Diabetes Mellitus, Osteoarthritis (OA) Additional Past Medical History / Comment(s): past concussions eczema as child, edentulous,basal cell skin cancer lt face , kidney stones,currently wearing a brief d/r drainage (recent scrotal sx) diabetes type 2 diagnosis 2017 History of Any Multi-Drug Resistant Organisms: None Reported Past Surgical History: Adenoidectomy, Hernia Repair, Tonsillectomy Additional Past Surgical History / Comment(s): hydrocele 01-25-16 scrotal exploration/excision of lipoma lt spermatic cord. several basal cell skin cancer removal, sigmoidoscopy/polypectomy,umb hernia repair,deviated septum. Past Anesthesia/Blood Transfusion Reactions: No Reported Reaction Past Psychological History: Bipolar, Depression, Schizophrenia Smoking Status: Former smoker - Past Family History Father Additional Family Medical History / Comment(s): health was good until her fell broke a hip,ended up with pne and from complications from pne. Mother Additional Family Medical History / Comment(s): heart problems and pacemaker General Exam Limitations: no limitations General appearance: alert, in no apparent distress ENT exam: Present: normal exam, mucous membranes moist Neck exam: Present: normal inspection. Absent: tenderness, meningismus, lymphadenopathy Respiratory exam: Present: normal lung sounds bilaterally. Absent: respiratory distress, wheezes, rales, rhonchi, stridor Cardiovascular Exam: Present: regular rate, normal rhythm, normal heart sounds. Absent: systolic murmur, diastolic murmur, rubs, gallop, clicks Extremities exam: Present: full ROM, tenderness (Left great toe), normal capillary refill, pedal edema (Left lower extremity), other (Red hot swollen left lower externa with associated what appears to be some induration. She does appear to have a chronic wound to the left great toe.). Absent: normal inspection, joint swelling, calf tenderness Back exam: Present: normal inspection Course Vital Signs 03/06/17 12:15 Temperature 98 F Pulse Rate 71 Respiratory 16 Rate Blood Pressure 177/83 O2 Sat by Pulse 98 Oximetry Medical Decision Making - Medical Decision Making 66-year-old male presents with appears the left flexion of any cellulitis with a history of diabetes. At this time patient's x-ray showing concern for possible osteomyelitis. We will start him on Vanco we will admit the patient at this time. Patient QUESTIONS have been answered. Dr. Wolff agrees to admission. - Lab Data Result diagrams: 03/06/17 13:00 03/06/17 13:00 Lab Results 03/06/17 03/06/17 03/06/17 Range/Units 13:00 13:00 13:00 WBC 10.3 (3.8-10.6) k/uL RBC 4.78 (4.30-5.90) m/uL Hgb 13.8 (13.0-17.5) gm/dL Hct 42.1 (39.0-53.0) % MCV 87.9 (80.0-100.0) fL MCH 28.8 (25.0-35.0) pg MCHC 32.8 (31.0-37.0) g/dL RDW 14.8 (11.5-15.5) % Plt Count 266 (150-450) k/uL Neutrophils % 69 % Lymphocytes % 21 % Monocytes % 7 % Eosinophils % 1 % Basophils % 0 % Neutrophils # 7.1 (1.3-7.7) k/uL Lymphocytes # 2.1 (1.0-4.8) k/uL Monocytes # 0.8 (0-1.0) k/uL Eosinophils # 0.1 (0-0.7) k/uL Basophils # 0.0 (0-0.2) k/uL ESR 8 (0-15) mm/hr PT 10.8 (9.0-12.0) sec INR 1.1 (<1.2) APTT 22.5 (22.0-30.0) sec Sodium 141 (137-145) mmol/L Potassium 4.4 (3.5-5.1) mmol/L Chloride 106 (98-107) mmol/L Carbon Dioxide 26 (22-30) mmol/L Anion Gap 9 mmol/L BUN 16 (9-20) mg/dL Creatinine 1.20 (0.66-1.25) mg/dL Est GFR (MDRD) Af Amer >60 (>60 ml/min/1.73 sqM) Est GFR (MDRD) Non-Af >60 (>60 ml/min/1.73 sqM) Glucose 99 (74-99) mg/dL Calcium 9.3 (8.4-10.2) mg/dL Total Bilirubin 0.4 (0.2-1.3) mg/dL AST 22 (17-59) U/L ALT 37 (21-72) U/L Alkaline Phosphatase 71 (38-126) U/L Total Protein 6.5 (6.3-8.2) g/dL Albumin 3.8 (3.5-5.0) g/dL - Radiology Data Radiology results: report reviewed, image reviewed Disposition Clinical Impression: Osteomyelitis of toe of left foot Disposition: ADMITTED IP TO THIS [facility] Condition: Stable Referrals: Trinidad Hunt MD [Primary Care Provider] - 1-2 days Time of Disposition: 14:30 Decision Date: 03/06/17 Decision Time: 14:30
--- NOTE | 2017-03-06 13:14 | XR ---
EXAMINATION TYPE: XR foot complete LT DATE OF EXAM: 03/06/2017 CLINICAL HISTORY: Diabetic nonhealing wound of the distal great toe. TECHNIQUE: Frontal, lateral, and oblique images of the left foot are obtained. COMPARISON: None FINDINGS: There is soft tissue density, subcutaneous ulcer, and cortical erosion of the dorsal aspect of the distal phalanx of the first digit with subtle periosteal reaction concerning for osteomyeliti s. Mild degenerative changes at the first distal interphalangeal joint are demonstrated as marginal o steophytes and opposing surface sclerosis. No evidence of acute fracture or dislocation is seen. Gene ralized soft tissue swelling of the left foot is mild. IMPRESSION: 1. Dorsal erosion and periosteal reaction of the tuft of the distal phalanx of the first digit in ass ociation with skin ulceration and soft tissue density concerning for osteomyelitis. Three-phase bone scan could be performed for confirmation. 2. Generalized mild edema of the left lower extremity.
[2017-03-06 13:19] LABS: Basophils % (A) 0 %; Eosinophils # (A) 0.1 k/uL (0-0.7); Eosinophils % (A) 1 %; HCT 42.1 % (39.0-53.0); HGB 13.8 gm/dL (13.0-17.5); Lymphocytes # (A) 2.1 k/uL (1.0-4.8); Lymphocytes % (A) 21 %; MCH 28.8 pg (25.0-35.0); MCHC 32.8 g/dL (31.0-37.0); MCV 87.9 fL (80.0-100.0); Mean Platelet Volume 7.7; Monocytes # (A) 0.8 k/uL (0-1.0); Monocytes % (A) 7 %; Neutrophils # (A) 7.1 k/uL (1.3-7.7); Neutrophils % (A) 69 %; Platelet Count 266 k/uL (150-450); RBC 4.78 m/uL (4.30-5.90); RDW 14.8 % (11.5-15.5); WBC 10.3 k/uL (3.8-10.6)
[2017-03-06 13:29] LABS: ALT 37 U/L (21-72); AST 22 U/L (17-59); Albumin 3.8 g/dL (3.5-5.0); Alkaline Phosphatase 71 U/L (38-126); Anion Gap 9 mmol/L; Blood Urea Nitrogen 16 mg/dL (9-20); Calcium 9.3 mg/dL (8.4-10.2); Carbon Dioxide 26 mmol/L (22-30); Chloride 106 mmol/L (98-107); Glucose 99 mg/dL (74-99); Potassium 4.4 mmol/L (3.5-5.1); Sodium 141 mmol/L (137-145); Total Bilirubin 0.4 mg/dL (0.2-1.3); Total Protein 6.5 g/dL (6.3-8.2)
[2017-03-06 13:31] LABS: INR 1.1 (<1.2); Partial Thromboplastin Time 22.5 sec (22.0-30.0); Prothrombin Time 10.8 sec (9.0-12.0)
[2017-03-06 14:13] LABS: Erythrocyte Sedimentation Rate 8 mm/hr (0-15)
[2017-03-06] MEDS ORDERED: VANCOMYCIN IV PER PHARMACY 1 EACH MISC MISCELLANE PRN (14:13)
[2017-03-06] MEDS ORDERED: VANCOMYCIN 2,000 MG in SODIUM CHLORIDE 0.9% 500 ML IVPB STA (14:29)
[2017-03-06] MEDS ORDERED: ONDANSETRON 4 MG/2 ML VIAL IVP PRN (14:30)
[2017-03-06] MEDS ORDERED: NALOXONE 0.4 MG/ML 1 ML VIAL IV PRN (14:30)
[2017-03-06] MEDS ORDERED: HYDROcodone/APAP 5-325MG 1 EACH TAB PO PRN (14:30)
[2017-03-06] MEDS: SODIUM CHLORIDE 0.9% 1,000 ML IV SCH (15:06)
[2017-03-06 17:52] LABS: Glucose,Whole Blood 83 mg/dL (75-99)
[2017-03-06] MEDS: INSULIN ASPART 100 UNIT/ML 1 ML 10 ML VIAL SQ SCH ×2 (18:00→21:19)
[2017-03-06 20:55] LABS: Glucose,Whole Blood 104 mg/dL (75-99)
[2017-03-06 21:22] LABS: Hemoglobin A1C 6.3 % (4.0-6.0)
[2017-03-06] MEDS: ACETAMINOPHEN TAB 325 MG TAB PO PRN (21:36)
[2017-03-06] MEDS: VANCOMYCIN 2,000 MG in SODIUM CHLORIDE 0.9% 500 ML IVPB SCH (23:44)
[2017-03-07] MEDS: SODIUM CHLORIDE 0.9% 1,000 ML IV SCH ×3 (04:02→20:22)
[2017-03-07] MEDS: INSULIN ASPART 100 UNIT/ML 1 ML 10 ML VIAL SQ SCH ×4 (07:17→21:28)
[2017-03-07 07:22] LABS: Glucose,Whole Blood 112 mg/dL (75-99)
[2017-03-07 08:00] LABS: Basophils % (A) 1 %; Eosinophils # (A) 0.2 k/uL (0-0.7); Eosinophils % (A) 3 %; HCT 40.3 % (39.0-53.0); Lymphocytes % (A) 31 %; MCH 29.2 pg (25.0-35.0); MCHC 32.3 g/dL (31.0-37.0); MCV 90.3 fL (80.0-100.0); Mean Platelet Volume 7.8; Monocytes # (A) 0.5 k/uL (0-1.0); Monocytes % (A) 7 %; Neutrophils # (A) 3.8 k/uL (1.3-7.7); Neutrophils % (A) 57 %; Platelet Count 235 k/uL (150-450); RBC 4.47 m/uL (4.30-5.90); RDW 14.8 % (11.5-15.5); WBC 6.6 k/uL (3.8-10.6)
[2017-03-07 08:14] LABS: ALT 37 U/L (21-72); AST 20 U/L (17-59); Albumin 3.2 g/dL (3.5-5.0); Alkaline Phosphatase 63 U/L (38-126); Anion Gap 10 mmol/L; Blood Urea Nitrogen 17 mg/dL (9-20); Calcium 9.1 mg/dL (8.4-10.2); Carbon Dioxide 25 mmol/L (22-30); Chloride 107 mmol/L (98-107); Glucose 97 mg/dL (74-99); Potassium 4.6 mmol/L (3.5-5.1); Sodium 142 mmol/L (137-145); Total Bilirubin 0.3 mg/dL (0.2-1.3); Total Protein 5.7 g/dL (6.3-8.2)
[2017-03-07] MEDS ORDERED: BACLOFEN 10 MG TAB PO PRN (10:36)
--- NOTE | 2017-03-07 10:51 | P.HPIM ---
History of Present Illness 66-year-old male presents to the emergency Department chief complaint of left foot swelling and redness until infection. He states over the last 2 days her becomes hot red and swollen. He is a diabetic. He states he changed his insert some issues he is wondering if that maybe is what contributed to this. He denies any fevers with this. He denies any nausea vomiting. Patient denied any fever patient blood sugars are well under control. Patient has a cellultis of the left lower limb as well which is significantly improved compared to yesterday patient is admitted for left great toe infection and cellulitis Review of Systems REVIEW OF SYSTEMS: CONSTITUTIONAL: No fever, no malaise, no fatigue. HEENT: No recent visual problems or hearing problems. Denied any sore throat. CARDIOVASCULAR: No chest pain, orthopnea, PND, no palpitations, no syncope. PULMONARY: No shortness of breath, no cough, no hemoptysis. GASTROINTESTINAL: No diarrhea, no nausea, no vomiting, no abdominal pain. Normoactive bowel sounds. NEUROLOGICAL: No headaches, no weakness, no numbness. HEMATOLOGICAL: Denies any bleeding or petechiae. GENITOURINARY: Denies any burning micturition, frequency, or urgency. MUSCULOSKELETAL/RHEUMATOLOGICAL: Denies any joint pain, swelling, or any muscle pain. ENDOCRINE: Denies any polyuria or polydipsia. The rest of the 14-point review of systems is negative. Past Medical History Past Medical History: Cancer, Diabetes Mellitus, Hypertension, Osteoarthritis ( OA) Additional Past Medical History / Comment(s): past concussions eczema as child, edentulous,basal cell skin cancer lt face , kidney stones,currently wearing a brief d/r drainage (recent scrotal sx) diabetes type 2 diagnosis 2017 History of Any Multi-Drug Resistant Organisms: None Reported Past Surgical History: Adenoidectomy, Hernia Repair, Tonsillectomy Additional Past Surgical History / Comment(s): hydrocele 01-25-16 scrotal exploration/excision of lipoma lt spermatic cord. several basal cell skin cancer removal, sigmoidoscopy/polypectomy,umb hernia repair,deviated septum. Past Anesthesia/Blood Transfusion Reactions: No Reported Reaction Past Psychological History: Bipolar, Depression, Schizophrenia Additional Psychological History / Comment(s): Single. Lives in an apartment with a roommate in the room about him. Not a tobacco smoker or alcohol user. Used to work in maintenance at local hospitals now disabled. No experience. No international travel. No animal exposures Smoking Status: Former smoker Past Alcohol Use History: Rare Additional Past Alcohol Use History / Comment(s): stated started smoking in his late 30's or early 40's.is a some day smoker. a pack will last a week. smoking cessation booklet given to pt. Past Drug Use History: None Reported - Past Family History Father Additional Family Medical History / Comment(s): health was good until her fell broke a hip,ended up with pne and from complications from pne. Mother Additional Family Medical History / Comment(s): heart problems and pacemaker Medications and Allergies Home Medications Medication Instructions Recorded Confirmed Type Biotin 5 mg PO DAILY 01/23/16 03/06/17 History Naproxen 500 mg PO Q12HR PRN 01/23/16 03/06/17 History Glimepiride [Amaryl] 2 mg PO DAILY 04/18/16 03/06/17 History Ascorbic Acid [Vitamin C] 500 mg PO DAILY 03/06/17 03/06/17 History Baclofen 10 mg PO DAILY PRN 03/06/17 03/06/17 History Brexpiprazole [Rexulti] 1 mg PO HS 03/06/17 03/06/17 History Docusate [Colace] 100 mg PO DAILY 03/06/17 03/06/17 History Ketoconazole 2% Cream [Nizoral 2%] 1 applic TOPICAL BID 03/06/17 03/06/17 History Lisinopril [Zestril] 5 mg PO DAILY 03/06/17 03/06/17 History Pravastatin Sodium [Pravachol] 5 mg PO DAILY 03/06/17 03/06/17 History Tribulus Gold 250mg 250 mg PO DAILY 03/06/17 03/06/17 History Allergies Allergy/AdvReac Type Severity Reaction Status Date / Time wool Allergy Rash/Hives Verified 03/06/17 13:03 Physical Exam Vitals: Vital Signs Temp Pulse Pulse Resp BP BP Pulse Ox 03/07/17 07:00 96.1 F L 57 L 18 128/53 97 03/06/17 22:45 97.1 F L 70 18 158/67 96 03/06/17 15:47 96.6 F L 71 16 142/70 100 03/06/17 15:03 98.4 F 61 20 159/77 97 03/06/17 12:15 98 F 71 16 177/83 98 Intake and Output 03/06/17 03/07/17 03/07/17 22:59 06:59 14:59 Other: Voiding Method Toilet Toilet Toilet # Voids 2 1 PHYSICAL EXAMINATION: GENERAL: The patient is alert and oriented x3, not in any acute distress. Well developed, well nourished. HEENT: Pupils are round and equally reacting to light. EOMI. No scleral icterus. No conjunctival pallor. Normocephalic, atraumatic. No pharyngeal erythema. No thyromegaly. CARDIOVASCULAR: S1 and S2 present. No murmurs, rubs, or gallops. PULMONARY: Chest is clear to auscultation, no wheezing or crackles. ABDOMEN: Soft, nontender, nondistended, normoactive bowel sounds. No palpable organomegaly. MUSCULOSKELETAL: No joint swelling or deformity. EXTREMITIES: No cyanosis, clubbing, or pedal edema. NEUROLOGICAL: Gross neurological examination did not reveal any focal deficits. SKIN: Patient's left great toe is infected with significant skin breakdown proximal aspect of the great toe with excessive soft tissue which appears like keloid which is infected red and patient does have redness of the left lower extremity extending 2 cm below the knee with local is of temperature compared to the other limb Results CBC & Chem 7: 03/07/17 07:01 03/07/17 07:01 Labs: Abnormal Lab Results - Last 24 Hours (Table) 03/06/17 03/06/17 03/07/17 Range/Units 13:00 20:53 07:01 Creatinine 1.35 H (0.66-1.25) mg/dL POC Glucose (mg/dL) 104 H (75-99) mg/dL Hemoglobin A1c 6.3 H (4.0-6.0) % Total Protein 5.7 L (6.3-8.2) g/dL Albumin 3.2 L (3.5-5.0) g/dL 03/07/17 Range/Units 07:15 Creatinine (0.66-1.25) mg/dL POC Glucose (mg/dL) 112 H (75-99) mg/dL Hemoglobin A1c (4.0-6.0) % Total Protein (6.3-8.2) g/dL Albumin (3.5-5.0) g/dL Thrombosis Risk Factor Assmnt - Choose All That Apply Each Risk Factor Represents 2 Points: Age 61-74 years Thrombosis Risk Factor Assessment Total Risk Factor Score: 2 Thrombosis Risk Factor Assessment Level: Low Risk Assessment and Plan Plan: - left rate toe infection along with left leg cellulitis: Since I do not believe patient has limb threatening although toe threatening infection patient is okay to be on vancomycin IV vancomycin patient has improved cellulitis anyways. We'll also consult infectious disease patient is well-known to Dr. Britt. Vascular surgery will be consulted for possibility of amputation patient does have good pulses in bilateral lower expertise. -type 2 diabetes mellitus well-controlled blood sugars on diet, patient advanced any scale insulin. Next and-hypertension hold off antiemesis medications next and-chronic kidney disease stage III possibility of diabetic nephropathy lisinopril will be started as soon as we can. - possibility of acute renal dysfunction secondary to infection for which patient is on IV fluids significantly -Obesity: Counseling was provided -Chronic low back pain
[2017-03-07 11:45] LABS: Glucose,Whole Blood 123 mg/dL (75-99)
[2017-03-07 14:44] VITALS: BMI 39.3
[2017-03-07] MEDS: VANCOMYCIN 2,000 MG in SODIUM CHLORIDE 0.9% 500 ML IVPB SCH (15:51)
[2017-03-07] MEDS: HEPARIN SODIUM,PORCINE 5,000 UNIT/ML 1 ML VIAL SQ SCH (15:51)
[2017-03-07 17:32] LABS: Glucose,Whole Blood 95 mg/dL (75-99)
--- NOTE | 2017-03-07 17:38 | CONS ---
CONSULTATION This is a 66 -year-old gentleman who has been admitted to [facility] with history of pain and swelling of the left foot big toe. The patient has a callus on the plantar aspect of the foot which seems to be infected and the patient has history of diabetes which is controlled with medication. The patient is scheduled to have a excision of the infected callus left foot big toe. On examination, neck is supple. Trachea central. Chest is clear to auscultation. Abdomen is soft. Brachial and radial and femoral pulses are present. Dorsalis pedis palpable. Patient had infected callus left foot big toe involving the plantar aspect and also the nail of the bed. PLAN: Excision of infected callus. Thank you very much. MMODL / IJN: [id number] /
[2017-03-07] MEDS: CLOTRIMAZOLE 1% CREAM 15 GM TUBE TOPICAL SCH (20:22)
[2017-03-07] MEDS: Brexpiprazole [Rexulti] 1 MG PO SCH (20:22)
[2017-03-07] MEDS: FAMOTIDINE 20 MG TAB PO SCH (20:22)
[2017-03-07 20:57] LABS: Glucose,Whole Blood 171 mg/dL (75-99)
[2017-03-08] MEDS: HEPARIN SODIUM,PORCINE 5,000 UNIT/ML 1 ML VIAL SQ SCH ×3 (00:34→15:30)
[2017-03-08] MEDS: SODIUM CHLORIDE 0.9% 1,000 ML IV SCH ×2 (06:03→15:31)
--- NOTE | 2017-03-08 06:45 | CONS ---
CONSULTATION DATE OF SERVICE: 03/07/2017 REASON FOR CONSULTATION: Left big toe wound, diabetic foot infection with secondary cellulitis. HISTORY OF PRESENT ILLNESS: The patient is a 66-year-old male who presented to the ER at [facility] on February with chief complaints of left foot swelling and redness. The patient apparently did have a new insert in his diabetic shoes that apparently has irritated his left big toe area leading to ulceration formation with significant swelling and redness that has been spreading into the left foot over the last 2 days. The patient did have underlying diabetic neuropathy. Hence, he is unable to feel any sensation and denies significant pain to it. The foot was swollen and red and slightly warm to touch. The patient did have some minimal drainage from his left big toe wound area no foul-smelling The patient denies any high-grade fever or any chills. Subsequently with these symptoms, the patient presented to the [facility] ER where the patient has been evaluated by the ER physician. The patient did have x-rays of the left foot which did show dorsal erosion and periosteal reaction of the tuft of the distal phalanx of the first digit in association with a skin ulceration and soft tissue density concerning for osteomyelitis. The patient on arrival to the ER did not have any fever. His white count was normal at 10.3. The patient has been started on vancomycin by the admitting team and ID was consulted for further recommendation regarding antibiotic therapy. REVIEW OF SYSTEMS: CONSTITUTIONAL: Positive for weakness and no fever. EYES: No complaint. ENT: No complaint. RESPIRATORY: No complaint. CARDIOVASCULAR: No complaint. GENITOURINARY: No complaint. GASTROINTESTINAL: No complaint. MUSCULOSKELETAL: As per HPI. INTEGUMENTARY: As per HPI. PSYCHOLOGICAL: No complaint. ENDOCRINE: No complaint. NEUROLOGICAL: No complaint. PAST MEDICAL HISTORY: Significant for diabetes mellitus, osteoarthritis, eczema, kidney stone, basal cell carcinoma. PAST SURGERY HISTORY: Adenoidectomy, hernia repair, tonsillectomy, hydrocele repair. SOCIAL HISTORY: Remote history of smoking. No drinking or drug use. FAMILY HISTORY: Mother with history of heart problems and did have a pacemaker placement. ALLERGIES: No known drug allergies. MEDICATIONS: Medications include the patient currently on vancomycin pharmacy to dose and Pravachol, Zofran, Narcan, NovoLog, heparin, Pepcid, Colace, baclofen, [place], Tylenol. PHYSICAL EXAMINATION: On examination, blood pressure is 142/70 with the pulse of 60, temperature 97.2. He is 93% on room air. General description is a middle-aged male, lying in bed, in no distress. No tachypnea or accessory muscle of respiration use. HEENT examination shows no pallor or scleral icterus. Oral mucous membrane is dry. No pharyngeal erythema or thrush NECK: Trachea central. No thyromegaly. LUNGS: Unlabored breathing, clear to auscultation anteriorly. No wheeze or crackle. HEART: S1, S2. Regular rate and rhythm. No murmur ABDOMEN: Soft, no tenderness. No guarding or rigidity. No organomegaly EXTREMITIES: No edema of feet. Examination of the left foot dorsum of foot is slightly swollen. Minimally warm to touch. Left big toe tip did have an open wound with dry crusted callus. No fluctuation or drainage was noted. NEUROLOGICAL: Patient is awake, alert, oriented x3. Mood and affect normal. LABS: Hemoglobin is 13, White count 6.6. BUN of 17, creatinine 1.35. Blood culture obtained currently pending. X-ray report as mentioned above. DIAGNOSTIC IMPRESSION AND PLAN: Patient with left diabetic foot infection started with an infected callus with left big toe tip with erosion and underlying concern for osteomyelitis with secondary cellulitis likely from a gram-positive skin asif less likely gram-negative infection. PLAN: 1. Vancomycin pharmacy to dose, target trough of 15. However the need to monitor his kidney function very closely to prevent any nephrotoxicity associated with use of vancomycin 2. Await vascular surgery evaluation and possible amputation of the distal phalanx at which time deep culture should be obtained that should guide us on further antibiotic therapy on discharge. 3. Depending upon his clinical response as well as cultures, will adjust the medication further if needed. Thank you for this consultation. Will follow this patient along with you. MMODL / IJN: [id number] / ZIA
[2017-03-08 07:03] LABS: Glucose,Whole Blood 124 mg/dL (75-99)
[2017-03-08] MEDS: INSULIN ASPART 100 UNIT/ML 1 ML 10 ML VIAL SQ SCH ×4 (08:32→21:55)
[2017-03-08] MEDS: VANCOMYCIN 2,000 MG in SODIUM CHLORIDE 0.9% 500 ML IVPB SCH (08:34)
[2017-03-08] MEDS: CLOTRIMAZOLE 1% CREAM 15 GM TUBE TOPICAL SCH ×2 (08:37→21:38)
[2017-03-08] MEDS: PRAVASTATIN SODIUM 20 MG TAB PO SCH (08:37)
[2017-03-08] MEDS: FAMOTIDINE 20 MG TAB PO SCH ×2 (08:37→21:38)
--- NOTE | 2017-03-08 09:18 | P.PN ---
Subjective Patient was admitted for infected callus of the left great toe patient is diabetic. Patient will undergo operation of the callus. Patient will be continued on IV vancomycin. Constitutional: Denied any fatigue denied any fever. Cardio vascular: denied any chest pain, palpitations Gastrointestinal denied any nausea vomiting Pulmonary: Denied any shortness of breath cough Neurologic denied any new focal deficits Objective - Vital Signs Vital signs: Vital Signs Temp 97.2 F L 03/08/17 07:00 Pulse 58 L 03/08/17 07:00 Resp 18 03/08/17 07:00 BP 140/66 03/08/17 07:00 Pulse Ox 96 03/08/17 07:00 Intake & Output 03/07/17 03/08/17 03/08/17 18:59 06:59 18:59 Weight 131.542 kg Other: Voiding Method Toilet Toilet # Voids 3 1 1 - Exam PHYSICAL EXAMINATION: GENERAL: The patient is alert and oriented x3, not in any acute distress. Well developed, well nourished. HEENT: Pupils are round and equally reacting to light. EOMI. No scleral icterus. No conjunctival pallor. Normocephalic, atraumatic. No pharyngeal erythema. No thyromegaly. CARDIOVASCULAR: S1 and S2 present. No murmurs, rubs, or gallops. PULMONARY: Chest is clear to auscultation, no wheezing or crackles. ABDOMEN: Soft, nontender, nondistended, normoactive bowel sounds. No palpable organomegaly. MUSCULOSKELETAL: No joint swelling or deformity. EXTREMITIES: No cyanosis, clubbing, or pedal edema. NEUROLOGICAL: Gross neurological examination did not reveal any focal deficits. SKIN: Patient's left great toe is infected with significant skin breakdown proximal aspect of the great toe with excessive soft tissue which appears like keloid which is infected red and patient does have redness of the left lower extremity extending 2 cm below the knee with local is of temperature compared to the other limb - Labs CBC & Chem 7: 03/07/17 07:01 03/07/17 07:01 Labs: Abnormal Lab Results - Last 24 Hours (Table) 03/07/17 03/07/17 03/08/17 Range/Units 11:43 20:56 06:57 POC Glucose (mg/dL) 123 H 171 H 124 H (75-99) mg/dL Microbiology - Last 24 Hours (Table) 03/06/17 13:00 Blood Culture - Preliminary Blood No Growth after 24 hours Assessment and Plan Plan: - left rate toe infection along with left leg cellulitis: Infected callus IV vancomycin, amputation today -type 2 diabetes mellitus well-controlled blood sugars on diet, patient advanced any scale insulin. Next and-hypertension hold off antiemesis medications -chronic kidney disease stage III possibility of diabetic nephropathy lisinopril will be started as soon as we can. - possibility of acute renal dysfunction secondary to infection for which patient is on IV fluids significantly -Obesity: Counseling was provided -Chronic low back pain
[2017-03-08 09:24] LABS: Anion Gap 8 mmol/L; Blood Urea Nitrogen 18 mg/dL (9-20); Calcium 9.2 mg/dL (8.4-10.2); Carbon Dioxide 26 mmol/L (22-30); Chloride 106 mmol/L (98-107); Glucose 109 mg/dL (74-99); Potassium 4.8 mmol/L (3.5-5.1); Sodium 140 mmol/L (137-145)
[2017-03-08 12:35] LABS: Glucose,Whole Blood 97 mg/dL (75-99)
[2017-03-08 17:06] LABS: Glucose,Whole Blood 160 mg/dL (75-99)
--- NOTE | 2017-03-08 17:39 | PN ---
PROGRESS NOTE DATE OF SERVICE: 03/08/2017 REASON FOR FOLLOWUP: Left big toe osteomyelitis and cellulitis. INTERVAL HISTORY: The patient is afebrile, has been breathing comfortably. The debridement of the necrotic callus has been postponed until tomorrow. The patient denies having any chest pain. No shortness of breath or cough. No abdominal pain or any diarrhea. PHYSICAL EXAMINATION: Blood pressure 140/66 with pulse of 58, temperature 97.2. He is 96% on room air. General description is a middle-aged male up in the room in no distress. RESPIRATORY SYSTEM: Unlabored breathing. Clear to auscultation anteriorly. HEART: S1, S2. Regular rate and rhythm. ABDOMEN: Soft. No tenderness. Left foot swelling and redness have slightly decreased. He still has a dry necrotic callus on the top of his left big toe. LABS: BUN of 18, creatinine 1.32. Blood culture so far negative. DIAGNOSTIC IMPRESSION AND PLAN: Patient with left big toe chronic callus with underlying osteomyelitis as seen on the x- rays. Await surgical debridement and deep culture. Will keep the patient on current antibiotic in the form of vancomycin, adjusting it further based on the culture. Continue supportive care. MMODL / IJN: [id number] /
[2017-03-08] MEDS: ACETAMINOPHEN TAB 325 MG TAB PO PRN (18:59)
[2017-03-08 20:40] LABS: Glucose,Whole Blood 117 mg/dL (75-99)
[2017-03-08] MEDS: Brexpiprazole [Rexulti] 1 MG PO SCH (21:41)
[2017-03-09] MEDS: HEPARIN SODIUM,PORCINE 5,000 UNIT/ML 1 ML VIAL SQ SCH ×3 (01:22→15:40)
[2017-03-09] MEDS: VANCOMYCIN 2,000 MG in SODIUM CHLORIDE 0.9% 500 ML IVPB SCH (01:22)
[2017-03-09] MEDS: SODIUM CHLORIDE 0.9% 1,000 ML IV SCH ×2 (06:13→12:04)
[2017-03-09 06:59] LABS: Glucose,Whole Blood 118 mg/dL (75-99)
[2017-03-09] MEDS: INSULIN ASPART 100 UNIT/ML 1 ML 10 ML VIAL SQ SCH ×4 (09:11→21:47)
[2017-03-09] MEDS: CLOTRIMAZOLE 1% CREAM 15 GM TUBE TOPICAL SCH ×2 (09:16→21:47)
[2017-03-09] MEDS: FAMOTIDINE 20 MG TAB PO SCH ×2 (09:16→21:47)
[2017-03-09] MEDS: PRAVASTATIN SODIUM 20 MG TAB PO SCH (09:16)
[2017-03-09] MEDS ORDERED: LIDOCAINE 1% INJ 10MG/ML (20 ML MDV) SQ ONE (10:07)
--- NOTE | 2017-03-09 10:52 | PCN ---
PROCEDURE NOTE PREOPERATIVE DIAGNOSIS: Infected callus left foot, big toe. This patient has a long-standing history of callus which got infected. He came to the emergency room. Has been admitted. Patient is on IV antibiotics. The diagnosis is infected callus left foot, big toe. OPERATION: Excision of the callus left foot, big toe. Measurement is 2 x 2 cm. This patient has a long-standing history of callus involving the plantar aspect of the big toe and partial nail bed. Foot was prepped with ChloraPrep and 1% lidocaine was infiltrated and using sharp scissor, we excised the callus down to subcutaneous tissue. All the callus was removed. No active bleeding was noted. Post wound debrided measurement is 2 x 2 cm. PLAN: We will use Medihoney gel to the wound and patient followed in [facility] on Mondays. We took the tissue culture for culture and sensitivity. MMODL / IJN: [id number] /
[2017-03-09 11:59] LABS: Glucose,Whole Blood 155 mg/dL (75-99)
[2017-03-09] MEDS ORDERED: VANCOMYCIN TROUGH DUE 1 EACH MISC MISCELLANE ONE (15:00)
[2017-03-09] MEDS: DOCUSATE 100 MG CAP PO PRN (15:42)
[2017-03-09 17:27] LABS: Glucose,Whole Blood 89 mg/dL (75-99)
[2017-03-09 20:31] LABS: Glucose,Whole Blood 128 mg/dL (75-99)
[2017-03-09] MEDS ORDERED: VANCOMYCIN 2,000 MG in SODIUM CHLORIDE 0.9% 500 ML IVPB SCH (21:00)
[2017-03-09] MEDS: Brexpiprazole [Rexulti] 1 MG PO SCH (21:47)
--- NOTE | 2017-03-09 23:40 | PN ---
PROGRESS NOTE DATE OF SERVICE: 03/09/2017 REASON FOR FOLLOWUP: Left big toe callus and cellulitis. INTERVAL HISTORY: The patient is afebrile. The patient did have a bedside debridement of the callus by Dr. Mansfield. The patient tolerated the procedure. Denies any pain in left foot area. No chest pain, shortness of breath or cough. No abdominal pain or any diarrhea. EXAMINATION: Blood pressure is 132/66 with a pulse of 68, temperature of 97.5. He is 95% on room air. General description is a middle-aged male, up in the bed in no distress. RESPIRATORY SYSTEM: Unlabored breathing. Clear to auscultation anteriorly. HEART: S1, S2. Regular rate and rhythm. ABDOMEN: Soft, nontender. LEFT FOOT: Overall swelling and redness has improved. LABS: Wound culture has been pending. Creatinine is 1.32. DIAGNOSTIC IMPRESSION AND PLAN: Patient with a left foot callus and secondary cellulitis. Clinically, patient low for underlying osteomyelitis and per Dr. Mansfield, the callus did not track down to the bone. Will wait for the culture to finalize to determine his discharge antibiotics. Keep the patient Vancomycin, watching his kidney function closely. MMODL / IJN: [id number] /
[2017-03-10] MEDS: HEPARIN SODIUM,PORCINE 5,000 UNIT/ML 1 ML VIAL SQ SCH ×4 (00:05→23:19)
[2017-03-10] MEDS: SODIUM CHLORIDE 0.9% 1,000 ML IV SCH ×3 (00:05→18:31)
[2017-03-10 07:32] LABS: Glucose,Whole Blood 122 mg/dL (75-99)
[2017-03-10] MEDS: INSULIN ASPART 100 UNIT/ML 1 ML 10 ML VIAL SQ SCH ×4 (07:54→21:24)
[2017-03-10 08:33] LABS: Anion Gap 7 mmol/L; Blood Urea Nitrogen 18 mg/dL (9-20); Calcium 9.4 mg/dL (8.4-10.2); Carbon Dioxide 27 mmol/L (22-30); Chloride 106 mmol/L (98-107); Glucose 122 mg/dL (74-99); Potassium 4.5 mmol/L (3.5-5.1); Sodium 140 mmol/L (137-145)
[2017-03-10] MEDS: PRAVASTATIN SODIUM 20 MG TAB PO SCH (09:04)
[2017-03-10] MEDS: FAMOTIDINE 20 MG TAB PO SCH ×2 (09:04→21:01)
[2017-03-10] MEDS: CLOTRIMAZOLE 1% CREAM 15 GM TUBE TOPICAL SCH ×2 (09:07→21:01)
[2017-03-10 12:16] LABS: Glucose,Whole Blood 120 mg/dL (75-99)
[2017-03-10] MEDS: DOCUSATE 100 MG CAP PO PRN (13:32)
[2017-03-10 17:19] LABS: Glucose,Whole Blood 105 mg/dL (75-99)
[2017-03-10] MEDS: Brexpiprazole [Rexulti] 1 MG PO SCH (21:02)
[2017-03-10 21:19] LABS: Glucose,Whole Blood 110 mg/dL (75-99)
[2017-03-11] MEDS: ceFAZolin IN SWFI 2 GM/20 ML SYRINGE IVP SCH ×2 (00:31→09:07)
--- NOTE | 2017-03-11 00:49 | P.PN ---
Subjective Progress Note Date: 03/09/17 Principal diagnosis: Osteomyelitis Patient was admitted for infected callus of the left great toe patient is diabetic. Patient will undergo operation of the callus. Patient will be continued on IV vancomycin. Constitutional: Denied any fatigue denied any fever. Cardio vascular: denied any chest pain, palpitations Gastrointestinal denied any nausea vomiting Pulmonary: Denied any shortness of breath cough Neurologic denied any new focal deficits 03/09/2017 Patient had wound debridement and cultures were sent by vascular surgery. final antibiotic recommendations depending on culture reports Otherwise no fever no chills. No other acute overnight issues. current medications reviewed Objective - Vital Signs Vital signs: Vital Signs Temp 97.5 F L 03/09/17 15:00 Pulse 60 03/09/17 15:00 Resp 18 03/09/17 15:00 BP 132/66 03/09/17 15:00 Pulse Ox 95 03/09/17 15:00 Intake & Output 03/09/17 03/09/17 03/10/17 06:59 18:59 06:59 Other: Voiding Method Toilet # Voids 2 3 # Bowel Movements 1 - Exam GENERAL: The patient is alert and oriented x3, not in any acute distress. Well developed, well nourished. HEENT: Pupils are round and equally reacting to light. EOMI. No scleral icterus. No conjunctival pallor. Normocephalic, atraumatic. No pharyngeal erythema. No thyromegaly. CARDIOVASCULAR: S1 and S2 present. No murmurs, rubs, or gallops. PULMONARY: Chest is clear to auscultation, no wheezing or crackles. ABDOMEN: Soft, nontender, nondistended, normoactive bowel sounds. No palpable organomegaly. MUSCULOSKELETAL: No joint swelling or deformity. EXTREMITIES: No cyanosis, clubbing, or pedal edema. NEUROLOGICAL: Gross neurological examination did not reveal any focal deficits. SKIN: Patient's left great toeskin is debridedandbandaged at time - Labs CBC & Chem 7: 03/07/17 07:01 03/10/17 07:57 Labs: Abnormal Lab Results - Last 24 Hours (Table) 03/09/17 03/09/17 03/09/17 Range/Units 06:56 11:57 20:29 POC Glucose (mg/dL) 118 H 155 H 128 H (75-99) mg/dL Microbiology - Last 24 Hours (Table) 03/06/17 13:00 Blood Culture - Preliminary Blood No Growth after 72 hours 03/08/17 03:20 Gram Stain - Preliminary Toe - Left First Wound Culture - Preliminary Assessment and Plan Assessment: - left great toe infection along with left leg cellulitis: Infected callus IV vancomycin, status post wound debridement. low suspicious for osteomyelitis -type 2 diabetes mellitus well-controlled blood sugars on diet, patient advanced any scale insulin. Next and-hypertension hold off antiemesis medications -chronic kidney disease stage III possibility of diabetic nephropathy lisinopril will be started as soon as we can. - possibility of acute renal dysfunction secondary to infection for which patient was on IV fluids.creatinine 1.32o -morbidObesity: Counseling was provided -Chronic low back pain
--- NOTE | 2017-03-11 00:49 | P.PN ---
Subjective Progress Note Date: 03/10/17 Principal diagnosis: Osteomyelitis Patient was admitted for infected callus of the left great toe patient is diabetic. Patient will undergo operation of the callus. Patient will be continued on IV vancomycin. Constitutional: Denied any fatigue denied any fever. Cardio vascular: denied any chest pain, palpitations Gastrointestinal denied any nausea vomiting Pulmonary: Denied any shortness of breath cough Neurologic denied any new focal deficits 03/09/2017 Patient had wound debridement and cultures were sent by vascular surgery. final antibiotic recommendations depending on culture reports Otherwise no fever no chills. No other acute overnight issues. 03/10/2017 Patient denied anynew complaints today Wound cultures are pending at this time. ID is following current medications reviewed Objective - Vital Signs Vital signs: Vital Signs Temp 97.5 F L 03/10/17 15:00 Pulse 66 03/10/17 15:00 Resp 18 03/10/17 15:00 BP 159/87 03/10/17 07:00 Pulse Ox 94 L 03/10/17 15:00 Intake & Output 03/10/17 03/10/17 03/11/17 06:59 18:59 06:59 Weight 131.542 kg Other: Voiding Method Toilet Toilet # Voids 2 3 # Bowel Movements 1 - Exam GENERAL: The patient is alert and oriented x3, not in any acute distress. Well developed, well nourished. HEENT: Pupils are round and equally reacting to light. EOMI. No scleral icterus. No conjunctival pallor. Normocephalic, atraumatic. No pharyngeal erythema. No thyromegaly. CARDIOVASCULAR: S1 and S2 present. No murmurs, rubs, or gallops. PULMONARY: Chest is clear to auscultation, no wheezing or crackles. ABDOMEN: Soft, nontender, nondistended, normoactive bowel sounds. No palpable organomegaly. MUSCULOSKELETAL: No joint swelling or deformity. EXTREMITIES: No cyanosis, clubbing, or pedal edema. NEUROLOGICAL: Gross neurological examination did not reveal any focal deficits. SKIN: Patient's left great toeskin is debridedandbandaged at time - Labs CBC & Chem 7: 03/07/17 07:01 03/10/17 07:57 Labs: Abnormal Lab Results - Last 24 Hours (Table) 03/10/17 03/10/17 03/10/17 Range/Units 07:30 07:57 12:03 Creatinine 1.32 H (0.66-1.25) mg/dL Glucose 122 H (74-99) mg/dL POC Glucose (mg/dL) 122 H 120 H (75-99) mg/dL 03/10/17 03/10/17 Range/Units 17:06 21:15 Creatinine (0.66-1.25) mg/dL Glucose (74-99) mg/dL POC Glucose (mg/dL) 105 H 110 H (75-99) mg/dL Microbiology - Last 24 Hours (Table) 03/08/17 03:20 Gram Stain - Final Toe - Left First Wound Culture - Final 03/06/17 13:00 Blood Culture - Preliminary Blood No Growth after 96 hours 03/08/17 03:20 Anaerobic Culture - Preliminary Toe - Left First Assessment and Plan Assessment: - left great toe infection along with left leg cellulitis: Infected callus IV vancomycin, status post wound debridement. low suspicious for osteomyelitis -type 2 diabetes mellitus well-controlled blood sugars on diet, patient advanced any scale insulin. Next and-hypertension hold off antiemesis medications -chronic kidney disease stage III possibility of diabetic nephropathy lisinopril will be started as soon as we can. - possibility of acute renal dysfunction secondary to infection for which patient was on IV fluids.creatinine 1.32o -morbidObesity: Counseling was provided -Chronic low back pain
--- NOTE | 2017-03-11 06:15 | PN ---
PROGRESS NOTE DATE OF SERVICE: 03/10/2017 REASON FOR CONSULTATION: Left foot cellulitis and wound to the left big toe area. INTERVAL HISTORY: The patient is afebrile. Has been breathing comfortably. Denies having any chest pain. No cough. No abdominal pain or any worsening pain to the left foot area. PHYSICAL EXAMINATION: On examination, blood pressure is 159/87 with a pulse of 66, temperature of 97.5. He is 94% on room air. General description is a middle-aged male lying in bed in no distress. RESPIRATORY SYSTEM: Unlabored breathing, clear to auscultation anteriorly. HEART: S1, S2. Regular rate and rhythm. ABDOMEN: Soft, no tenderness. Left foot big toe tip with wound with no bone exposure with granulation tissue, no surrounding swelling or redness. No drainage. LABS: Wound culture negative for any resistant pathogen. DIAGNOSTIC IMPRESSION AND PLAN: Patient with a left big toe wound and cellulitis, status post debridement of infected callus with no evidence of any bony exposure. His sedimentation rate is normal. Clinically doubt osteomyelitis. Antibiotic was switched to cefazolin 2 gram q.8 hours with the plan to finish therapy with oral Keflex and local wound care with Aquacel Silver and a close outpatient followup. MMODL / IJN: [id number] / ZIA
[2017-03-11 07:37] LABS: Glucose,Whole Blood 121 mg/dL (75-99)
[2017-03-11 08:07] LABS: Anion Gap 8 mmol/L; Blood Urea Nitrogen 19 mg/dL (9-20); Calcium 9.8 mg/dL (8.4-10.2); Carbon Dioxide 27 mmol/L (22-30); Chloride 106 mmol/L (98-107); Glucose 124 mg/dL (74-99); Potassium 4.6 mmol/L (3.5-5.1); Sodium 141 mmol/L (137-145)
[2017-03-11 08:26] VITALS: BP 145/64; PULSE 65; RESP 18; TEMP 96.8
[2017-03-11] MEDS: INSULIN ASPART 100 UNIT/ML 1 ML 10 ML VIAL SQ SCH ×2 (09:04→12:13)
[2017-03-11] MEDS: HEPARIN SODIUM,PORCINE 5,000 UNIT/ML 1 ML VIAL SQ SCH (09:06)
[2017-03-11] MEDS: PRAVASTATIN SODIUM 20 MG TAB PO SCH (09:06)
[2017-03-11] MEDS: CLOTRIMAZOLE 1% CREAM 15 GM TUBE TOPICAL SCH (09:07)
[2017-03-11] MEDS: DOCUSATE 100 MG CAP PO PRN (10:35)
[2017-03-11] MEDS: FAMOTIDINE 20 MG TAB PO SCH (10:35)
--- NOTE | 2017-03-11 12:26 | CDI ---
Documentation Clarification Form Date: 03/11/2017 12:23:00 PM From: Jessa Ibarra CCS, CCDS Admit Date: 03/06/2017 Patient Name: Sebastian Ferrara Visit Number: [id number] Discharge Date: ATTENTION: The Clinical Documentation Specialists (CDI) and [facility] Coding Staff appreciate your assistance in clarifying documentation. Please respond to the clarification below the line at the bottom and electronically sign. The CDI & [facility] Coding staff will review the response and follow-up if needed. Please note: Queries are made part of the Legal Health Record. If you have any questions, please contact the author of this message via ITS. Dr. Micheal Wolff: Your patient has the documented diagnosis of Diabetes Mellitus Type II, diet controlled and infection of the left great toe & cellulitis of the left lower leg. A relationship between diagnoses cannot be assumed unless documented as such by the attending physician. In order to capture the severity of condition; please document the relationship, if any, between these diagnoses. History/Risk Factors: DM II, Morbid obesity, CKD III with hypertension & nephropathy. Clinical Indicators: Presented with infection of the left great toe & cellulitis of left lower leg. Treatment: IV abx, bedside excisional debridement of left great toe infected callus (negative for osteomyelitis). Please clarify and document your clinical opinion in the progress notes and discharge summary if any relationship (due to, caused by, secondary to) exists between these two diagnoses. Please include clinical findings supporting your diagnosis. Left great toe infection and left lower leg cellulitis due to diabetes mellitus. Left great toe infection and left lower leg cellulitis not due to diabetes mellitus. Other explanation of clinical findings (please specify) Unable to determine (no explanation for clinical findings) Please continue to document in your progress notes and discharge summary in order to capture severity of illness and risk of mortality. Include clinical findings that support your diagnosis. MTDD
[2017-03-11 12:27] LABS: Glucose,Whole Blood 93 mg/dL (75-99)
--- NOTE | 2017-03-11 12:34 | CDI ---
Documentation Clarification Form Date: 03/11/2017 12:23:00 PM From: Jessa Ibarra CCS, CCDS Admit Date: 03/06/2017 Patient Name: Sebastian Ferrara Visit Number: [id number] Discharge Date: ATTENTION: The Clinical Documentation Specialists (CDI) and [facility] Coding Staff appreciate your assistance in clarifying documentation. Please respond to the clarification below the line at the bottom and electronically sign. The CDI & [facility] Coding staff will review the response and follow-up if needed. Please note: Queries are made part of the Legal Health Record. If you have any questions, please contact the author of this message via ITS. Dr. Micheal Wolff: Per the History & Physical and subsequent progress notes: "Possibility of acute renal dysfunction secondary to infection for which patient is on IV fluids significantly." History/Risk Factors: CKD stage III, NIDDM II, Diabetic neuropathy, Morbid obesity Clinical Indicators: Presented with left great toe infection. Creatinine: (1.20), 1.35, 1.31 GFR: >60 - 55 Treatment: IV fluids, Excisional debridement of lt great toe infection. In order to capture the severity of condition, please clarify if the condition signifies: Acute renal failure Acute on chronic renal failure CKD Stage 1 GFR >90 CKD Stage 2 GFR 60-89 CKD Stage 3 GFR 30-59 CKD Stage 4 GFR 15-29 CKD Stage 5 GFR <15 Chronic renal failure/Chronic Kidney disease (CKD) please stage if known CKD Stage 1 GFR >90 CKD Stage 2 GFR 60-89 CKD Stage 3 GFR 30-59 CKD Stage 4 GFR 15-29 CKD Stage 5 GFR <15 ESRD Other, please specify Unable to determine Please continue to document in your progress notes and discharge summary in order to capture severity of illness and risk of mortality. Include clinical findings that support your diagnosis. MTDD
--- NOTE | 2017-03-11 15:09 | PN ---
PROGRESS NOTE DATE OF SERVICE: 03/11/2017. REASON FOR FOLLOWUP VISIT: Left big toe wound and cellulitis. INTERVAL HISTORY: The patient is afebrile. He is breathing comfortably. Denies having any chest pain or shortness of breath, no abdominal pain or any pain in his left foot area. PHYSICAL EXAMINATION: Blood pressure 145/64 with a pulse of 55, temperature of 96.8. He is 94% on room air. General description is a middle aged male up in the bed, in no distress. Respiratory system: Unlabored breathing, clear to auscultation anteriorly. Heart S1, S2. Regular rate and rhythm. ABDOMEN: Soft, no tenderness. Left foot wound currently dressed. No obvious drainage on the dressing. LABS: BUN of 19, creatinine 1.31. Blood cultures has been negative. Wound culture negative for any resistant pathogen. DIAGNOSTIC IMPRESSION AND PLAN: Patient with left big toe infected callus, status post removal of the same. Clinically doubt osteomyelitis seemed to be showing clinical improvement on cefazolin. Plan to finish therapy with oral Keflex. Local wound care with Aquacel Silver dressing. Follow up in the office in 1 week. All his questions were answered. MMODL / IJN: [id number] /
--- NOTE | 2017-03-12 00:29 | P.DS ---
Providers Date of admission: 03/06/17 14:41 Expected date of discharge: 03/11/17 Attending physician: Micheal Wolff Consults: 03/07/17 10:39 Consult Physician Routine Consulting Provider: Yayo Mansfield Consult Reason/Comments: Diabetic toe infection Do you want consulting provider notified?: Yes 03/07/17 12:16 Consult Physician Routine Consulting Provider: Leticia Britt Consult Reason/Comments: Osteomyelitis Do you want consulting provider notified?: Yes Primary care physician: Marilee Abdi Hospital Course: Discharge diagnosis - left great toe infection along with left leg cellulitis: Infected callus IV vancomycin, status post wound debridement. low suspicious for osteomyelitis. -type 2 diabetes mellitus well-controlled blood sugars on diet, patient advanced any scale insulin. Next and-hypertension hold off antiemesis medications -chronic kidney disease stage III possibility of diabetic nephropathy lisinopril will be started as soon as we can. - possibility of acute renal dysfunction secondary to infection for which patient was on IV fluids.creatinine 1.32 -morbidObesity: Counseling was provided -Chronic low back pain Left great toe Toe infection and leg cellulitis due to diabetes Acute on CKD stage II Hospital course Patient was admitted for infected callus of the left great toe patient is diabetic. Patient will undergo operation of the callus. Patient will be continued on IV vancomycin. Constitutional: Denied any fatigue denied any fever. Cardio vascular: denied any chest pain, palpitations Gastrointestinal denied any nausea vomiting Pulmonary: Denied any shortness of breath cough Neurologic denied any new focal deficits 03/09/2017 Patient had wound debridement and cultures were sent by vascular surgery. final antibiotic recommendations depending on culture reports Otherwise no fever no chills. No other acute overnight issues. 03/10/2017 Patient denied anynew complaints today Wound cultures are pending at this time. 03/11/2017. Wound culture showed no growth. Patient be continued oral antibiotics for cellulitis. Wound care with Aquacel silver gauze- wet to dry dressing daily Discharge physical examination was done. Patient Condition at Discharge: Stable Plan - Discharge Summary Discharge Rx Participant: Yes New Discharge Prescriptions: New Cephalexin [Keflex] 500 mg PO Q8HR 7 Days #21 cap Continue Biotin 5 mg PO DAILY Glimepiride [Amaryl] 2 mg PO DAILY Ketoconazole 2% Cream [Nizoral 2%] 1 applic TOPICAL BID Docusate [Colace] 100 mg PO DAILY Ascorbic Acid [Vitamin C] 500 mg PO DAILY Lisinopril [Zestril] 5 mg PO DAILY Brexpiprazole [Rexulti] 1 mg PO HS Baclofen 10 mg PO DAILY PRN PRN Reason: Muscle Spasm Pravastatin Sodium [Pravachol] 5 mg PO DAILY Tribulus Gold 250mg 250 mg PO DAILY Discontinued Naproxen 500 mg PO Q12HR PRN PRN Reason: Pain Discharge Medication List Biotin 5 mg PO DAILY 01/23/16 [History] Glimepiride [Amaryl] 2 mg PO DAILY 04/18/16 [History] Ascorbic Acid [Vitamin C] 500 mg PO DAILY 03/06/17 [History] Baclofen 10 mg PO DAILY PRN 03/06/17 [History] Brexpiprazole [Rexulti] 1 mg PO HS 03/06/17 [History] Docusate [Colace] 100 mg PO DAILY 03/06/17 [History] Ketoconazole 2% Cream [Nizoral 2%] 1 applic TOPICAL BID 03/06/17 [History] Lisinopril [Zestril] 5 mg PO DAILY 03/06/17 [History] Pravastatin Sodium [Pravachol] 5 mg PO DAILY 03/06/17 [History] Tribulus Gold 250mg 250 mg PO DAILY 03/06/17 [History] Cephalexin [Keflex] 500 mg PO Q8HR 7 Days #21 cap 03/11/17 [Rx] Follow up Appointment(s)/Referral(s): Trinidad Hunt MD [Primary Care Provider] - 03/18/17 10:20 am [facility], [NON-STAFF] - [facility],. [NON-STAFF] - 03/18/17 2:00 pm (with Dr. Mansfield ) Leticia Britt MD [STAFF PHYSICIAN] - As Needed Patient Instructions/Handouts: Osteomyelitis (DC), Type 2 Diabetes in Adults ( DC) Activity/Diet/Wound Care/Special Instructions: Cardiac, diabetic diet. Activity as tolerated. Discharge Disposition: HOME WITH HOME HEALTH SERVICES
== END 2017-03-11 13:56 | disposition home health service (06) | DRG 623 ==
LOC: EC 11:48 → 4MS4W 14:41
PROVIDERS: ADMIT Internal Medicine; ATTEND Internal Medicine
PROC: 0JBR0ZZ Excision of Left Foot Subcutaneous Tissue and Fascia, Open Approach (ICD-10-PCS; principal; 2017-03-09)
DX: E11.69 Type 2 diabetes mellitus with other specified complication (principal); L03.116 Cellulitis of left lower limb; M86.9 Osteomyelitis, unspecified; E11.22 Type 2 diabetes mellitus with diabetic chronic kidney disease; E11.40 Type 2 diabetes mellitus with diabetic neuropathy, unspecified; E11.628 Type 2 diabetes mellitus with other skin complications; N17.9 Acute kidney failure, unspecified; N18.3 Chronic kidney disease, stage 3 (moderate); F20.9 Schizophrenia, unspecified; E66.9 Obesity, unspecified; F17.200 Nicotine dependence, unspecified, uncomplicated; F32.9 Major depressive disorder, single episode, unspecified; G89.29 Other chronic pain; I12.9 Hypertensive chronic kidney disease with stage 1 through stage 4 chronic kidney disease, or unspecified chronic kidney disease; L03.032 Cellulitis of left toe; M54.5 Low back pain; L84 Corns and callosities; Z79.899 Other long term (current) drug therapy; Z85.828 Personal history of other malignant neoplasm of skin; Z87.442 Personal history of urinary calculi; Z87.820 Personal history of traumatic brain injury; Z79.84 Long term (current) use of oral hypoglycemic drugs; Z71.3 Dietary counseling and surveillance; Z68.39 Body mass index [BMI] 39.0-39.9, adult
CPT/HCPCS: 36415; 80048; 80053; 80202; 83036; 85025; 85610; 85652; 85730; 87040; 87070; 87075; 87205; 99284